=== PATIENT | female | born 1965 | race Caucasian/White ===

== ENCOUNTER 2017-11-02 15:30 | Outpatient (RCR) | payer BC, SELFPAY ==
--- NOTE | 2017-10-06 13:12 | PTTR_ITS ---
DATE: 10/06/17 SUBJECTIVE: Nancy states that her elbow is presenting with restricted motion again after attempting to pull weeds from her garden. She is seeing the chiropractor for this later today. Continues to complain of LBP, more so on the left side, into the upper glute. Denies sciatica symptoms. The patient read and signed dry needling information today, and gave consent for treatment. OBJECTIVE: Seen today for integrated dry needling (gibbs basis). She was educated in the definition of dry needling, its risks and benefits as well as typical response , expected outcomes and strategies for self care. Quantitative analysis: Right deep radial nerve 1/4, left deep radial nerve 1/4 , right saphenous 2/4, left saphenous 1/4 = 5/16 indicating a good responder to dry needling from 8 or fewer treatments. Homeostatic points used today: bilateral superior cluneal and inferior gluteal 3, posterior cutaneous of L5 2 bilaterally, paravertebrals L2 through L4 bilaterally 2 with the exception of right L2 1. Symptomatic points: 2 in left gluteal medius and 1 in right gluteal medius as well as bilateral piriformis triggers points, medial and lateral aspects. Manual therapy: ([id number]). Mulligan style SLR, PA mobs and manual distraction via leg pulls. She then performed a ther-ex routine with the [employer]TER [employer]IN. See her note for details. Direct treatment time: 15 min. Total treatment time: 30 min. Assessment: Responded well to dry needling today. Did comment that she had less gluteal discomfort upon getting off the plinth. Plan: Continue as indicated above. MM/gc
--- NOTE | 2017-10-06 16:13 | PTTR_ITS ---
DATE: 10/06/17 CO TREATMENT with supervising Eli, Fei Stinson. See his note for details. OBJECTIVE: Therapeutic procedures ([id number]). * x See flow sheet: focus was on core stabilization using an extension approach. Did have patient pay special attention to TA activities. * Verbal and tactile cues were provided throughout today's session for proper positioning and isolation of specific muscles. * Ended with estim and cryotherapy to the low back region while in prone x15 min. at no charge. Direct treatment time: 25 min. Total treatment time: 35 min. SG/gc
--- NOTE | 2017-10-11 10:40 | PTTR_ITS ---
DATE: 10/11/17 SUBJECTIVE: Nancy states she had a very good response to dry needling with nearly a day and a half of symptom free back function. Saw the Chiropractor yesterday for manipulation of the elbow and also manipulation of the low back, which did not offer any symptom reduction. She is noting mild improvements in her elbow, however. OBJECTIVE: Manual therapy: ([id number]). Lumbopelvic mobs consisting of PA mobs in prone, manual distraction techniques via leg pulls and Mulligan style SLR to individual LEs. Integrated dry needling. Homeostatic points used today: posterior cutaneus L5 with 2 bilaterally, bilateral superior cluneal and inferior gluteal with 3, para vertebrals of L3 and L4 bilaterally with 2 with estim applied bilaterally. Also, performed symptomatic points through bilateral glute medius, piriformis and glute lilli with muscle twitch in bilateral glute medius. This was done with 3 needles. She went on to complete a ther-ex routine with the UNDER TRIMMER. See her note for details. Therapeutic procedures ([id number][]). Direct treatment time: 15 min. Total treatment time: 30 min. Assessment: Responding very well to the dry needling. Plan: Continue with progression of core stabilization while implementing dry needling. MM/gc
--- NOTE | 2017-10-17 11:00 | PTTR_ITS ---
DATE: 10/17/17 Co-treat with supervising PT, Ronni Stinson. OBJECTIVE: Therapeutic procedures ([id number]). * x See flow sheet: Focus was on core and hip stabilization. Added standing hip PREs with gliding disc, modified planks and t-band resisted push / pull and circles CW/CCW. Performed 10 minutes of tread mill activity per wellness program. * x Provided skilled instruction in proper exercise performance * x Provided skilled manual cues to facilitate proper muscle recruitment and/ or movement pattern Declined modalities. Hope to add standing UBE next session if elbow is continuing to feel better. Direct treatment time: 35 minutes Total treatment time: 45 minutes
--- NOTE | 2017-10-17 13:14 | PTTR_ITS ---
DATE: 10/17/17 SUBJECTIVE: Nancy states she did well x3 days, without back pain, after her last session. Did note some muscle soreness in the glute where the trigger point needles were applied, but back pain was well managed. OBJECTIVE: Manual therapy: ([id number]). Integrated dry needling (gibbs basis). Homeostatic points used: superior cluneal and inferior gluteal bilaterally with 3, bilateral posterior cutaneous L5 with 2. Symptomatic points used: bilateral glute medius and piriformis with 3, paravertebrals L2 through L4 - utilized 1 on right L2, 2 on left L2 and 2 on L3/4 bilaterally. Ended with estim x8 minutes. She then rec'd manual therapy to include lumbopelvic mobs using manual distraction techniques via leg pulls as well as bent knee fall outs. PA mobs were applied followed by prone extension with over pressure at L3/4 and L5. The patient then completed a ther-ex routine with the [employer]. For details see her note. This was upgraded with more transverse abdominus and core stabilization strengthening. 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 Discussed a modified kneeling chair. She will look into this. She continues to be compliant with her press ups. Direct treatment time: 15 min. Total treatment time: 30 min. Plan: Continue as indicated above. MM/gc
--- NOTE | 2017-10-24 13:00 | NT_ITS ---
10/24/17 No showed for today's PT appt. Patient was attempted to be reached via telephone , but message had to be left. Crissy Simms, BENEFITS COORDINATOR
--- NOTE | 2017-10-25 11:25 | PTTR_ITS ---
DATE: 10/25/17 SUBJECTIVE: Nancy states her back pain exacerbated after riding x3 hrs. in a cramped car in the backseat. Admits having severe down regulation after her last needling session where she went back to sleep for a couple of hours. We discussed this being a possible side effect, and to make sure we schedule late in the day for subsequent treatment. She does feel the dry needling has been beneficial. Reports compliancy with her HEP. OBJECTIVE: Integrated dry needling was done on an out of pocket basis. Homeostatic pts. used today: bilateral superior cluneal and inferior gluteal 3 as well as posterior cutaneus L2 and L5 2, right L2 1 Symptomatic points used today: glute medius 3 left and piriformis x2 3 left, paravertebrals L3 and L4 as well. Did apply estim spanning L5 to L2 bilaterally x10 min. Manual therapy: ([id number]). PA mobs to the lumbar spine, lumbopelvic mobs using bent knee fall outs as well as manual distraction techniques to individual LEs. She did not have time for her in clinic strengthening routine today. Direct treatment time: 15 min. Total treatment time: 30 min. Plan: Resume 2x per week treatment. If she does not make significant gains in the next couple of weeks as she returns to work, which requires more sitting, will refer her back to her PCP for possible further intervention. Would like to push her more aggressively with her core stabilization. Will get her a workup with Jann Albarran ATC for this. MM/annel
--- NOTE | 2017-11-02 15:30 | PTTR_ITS ---
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 Has been holding up well with her back and disc related pain, but is still continuing to experience L sided sacral pain. Seen in PT for re-check. Patient has (+) SI compression testing when positioned supine, (-) gap testing, mildly (+) Stork, (-) Yadira. Was found to have anteriorly rotated L innominate that did correct well with MET. Therapeutic procedures ([id number]). * HEP review: Incorporate resisted hip extension with contralateral hip flexion with isometric for pelvic correction exercise. Patient received dry needling. This is MADISON basis. Homeostatic points used: Bilateral L5 2 needle L, superior cluneal and inferior gluteal with 3. Also performed paravertebrals L3-L5 with 2 bilaterally with stim for 10 mins Symptomatic points used glut med L, piriformis, medial and lateral trigger points with 3 with muscle twitch response elicited with medial piriformis trigger point. Direct treatment time: 20 mins Total treatment time: 45 mins A: Responded well to muscle energy correction technique for innominate rotation. Will follow up with her,continued frequency as above. Will progress with shot gun approach SI stabilization exercises next visit. MM/dl
== END 2017-11-04 23:59 | disposition home or self-care (01) ==
LOC: PT 15:30
PROVIDERS: PCP Emergency Medicine; Referring Provider Nurse Practitioner; Visit Provider Nurse Practitioner
DX: M54.5 Low back pain (principal); M51.27 Other intervertebral disc displacement, lumbosacral region
CPT/HCPCS: 97110; 97140

== ENCOUNTER 2017-12-28 12:07 | Outpatient (CLI) | payer BC, SELFPAY ==
--- NOTE | 2017-12-28 06:00 | DI.RAD_ITS ---
SYMPTOM/DIAGNOSIS: SACROILIAC JOINT DYSFUNCTION C-ARM: Fluoroscopy Time: 80.9 seconds Fluoroscopy was provided for guidance with pain clinic injection. Hard copy images show needle placement over the left inferior SI joint. Please see procedure note for details.
[2017-12-28 12:14] VITALS: BP 118/64; PULSE 69; RESP 16; TEMP 36.7; O2SAT 96
[2017-12-28 12:55] VITALS: BP 139/75; PULSE 76; RESP 13; O2SAT 99
--- NOTE | 2017-12-28 13:01 | PDOC.PAIN ---
Pain Clinic Procedure Note Current Active Problems Problem Status Onset Sacroiliac dysfunction Chronic INTRA-ARTICULAR SI JOINT INJECTION HAILE STOVALL has been referred to the [facility] for intra-articular SI joint injection. COMMENTS: Left SI joint pain Patient was interviewed and the medical record reviewed. There were no medical, pharmacologic, radiographic or other structural contraindications to attempting fluoroscopically guided intra-articular SI joint injection. Risks and expected side effects as well as potential benefit of the procedure were reviewed and voiced concerns addressed. The printed consent form was signed and witnessed. Standard time-out procedure was performed. Patient was placed in the prone position on the fluoroscopy table and automated blood pressure cuff and pulse oximeter applied. The skin entry point for approaching { /left/ } SI joints was identified under the most advantageous fluoroscopic view and marked. Following thorough Chlorhexadine preparation of the skin and draping and 1% lidocaine infiltration of the skin entry point and subcutaneous tissues, a 22 gauge spinal needle was placed under fluoroscopic guidance into { /left/ } SI joints was identified under the most advantageous fluoroscopic view and marked. Following thorough Chlorhexadine preparation of the skin and draping and 1% lidocaine infiltration of the skin entry point and subcutaneous tissues, a 22 gauge spinal needle was placed under fluoroscopic guidance into { /left/ } SI joint. Intra-articular placement was confirmed by a clear arthrogram resulting from the injection of 0.25ml Omnipaque 240, 1ml 0.5% bupivacaine, and half ml (40mg) of 80mg concentration Depomedrol were injected intra-articularily with an initial reproduction of a significant component of the usual pain. Vital signs were stable throughout the procedure and were as recorded in the docflowsheet by the nursing staff. If given, dosages of intravenous drugs for anxiolysis and analgesia were documented in MAR. Follow up plans and appointments were discussed with the patient. Post procedure instruction was given as documented in nursing documentation and having met discharge criteria, and was discharged from the [facility]. COMMENTS: pain went from 5/10 to 0/10. f/u prn CC: Jose Angel Gray
[2017-12-28] MEDS: Bupivacaine 0.5% Pres-Free 30 ML VIAL IJ (13:03)
[2017-12-28] MEDS: methylPREDNISolone ACETATE 80 MG/ML VIAL IJ (13:03)
[2017-12-28] MEDS: Omnipaque 240 MG/ML 50 ML BTL IJ (13:03)
--- NOTE | 2017-12-28 13:04 | PDOC.PAIN_ITS ---
Pain Clinic Procedure Note Current Active Problems Problem Status Onset Sacroiliac dysfunction Chronic INTRA-ARTICULAR SI JOINT INJECTION HAILE STOVALL has been referred to the [facility] for intra- articular SI joint injection. COMMENTS: Left SI joint pain Patient was interviewed and the medical record reviewed. There were no medical , pharmacologic, radiographic or other structural contraindications to attempting fluoroscopically guided intra-articular SI joint injection. Risks and expected side effects as well as potential benefit of the procedure were reviewed and voiced concerns addressed. The printed consent form was signed and witnessed. Standard time-out procedure was performed. Patient was placed in the prone position on the fluoroscopy table and automated blood pressure cuff and pulse oximeter applied. The skin entry point for approaching { /left/ } SI joints was identified under the most advantageous fluoroscopic view and marked. Following thorough Chlorhexadine preparation of the skin and draping and 1% lidocaine infiltration of the skin entry point and subcutaneous tissues, a 22 gauge spinal needle was placed under fluoroscopic guidance into { /left/ } SI joints was identified under the most advantageous fluoroscopic view and marked. Following thorough Chlorhexadine preparation of the skin and draping and 1% lidocaine infiltration of the skin entry point and subcutaneous tissues, a 22 gauge spinal needle was placed under fluoroscopic guidance into { /left/ } SI joint. Intra-articular placement was confirmed by a clear arthrogram resulting from the injection of 0.25ml Omnipaque 240, 1ml 0.5% bupivacaine, and half ml (40mg) of 80mg concentration Depomedrol were injected intra- articularily with an initial reproduction of a significant component of the usual pain. Vital signs were stable throughout the procedure and were as recorded in the docflowsheet by the nursing staff. If given, dosages of intravenous drugs for anxiolysis and analgesia were documented in MAR. Follow up plans and appointments were discussed with the patient. Post procedure instruction was given as documented in nursing documentation and having met discharge criteria, and was discharged from the [facility]. COMMENTS: pain went from 5/10 to 0/10. f/u prn CC: Jose Angel Gray
== END 2017-12-28 12:27 ==
PROVIDERS: PCP Emergency Medicine; Visit Provider Anesthesiology Pain Medicine
DX: M54.5 Low back pain (principal); M53.3 Sacrococcygeal disorders, not elsewhere classified; G89.29 Other chronic pain
CPT/HCPCS: 27096; 72200; J1040; Q9967

== ENCOUNTER 2018-02-02 12:59 | Outpatient (CLI) | payer BC, SELFPAY ==
--- NOTE | 2018-02-02 10:18 | DI.RAD_ITS ---
SYMPTOM/DIAGNOSIS: ACUTE LOW BACK PAIN, R/O FX OR BONE METS M54.5 LUMBOSACRAL SPINE: 02/02 Five views were obtained. There is minimal left convex lumbar scoliosis. This may be positional. There are mild degenerative changes of the S-I joints bilaterally. The intervertebral disc spaces are well maintained except for slight loss of height at L5-S1. Minimal hypertrophic spurring of the vertebral end plates and facet joints is noted throughout the lumbar region. CONCLUSION: Mild DJD of the lumbar spine. Presumed disc degeneration at L5-S1
== END 2018-02-02 13:19 ==
PROVIDERS: PCP Emergency Medicine; Visit Provider Nurse Practitioner Family
DX: M54.5 Low back pain (principal); M51.37 Other intervertebral disc degeneration, lumbosacral region; M53.3 Sacrococcygeal disorders, not elsewhere classified; M47.816 Spondylosis without myelopathy or radiculopathy, lumbar region
CPT/HCPCS: 72110

== ENCOUNTER 2018-02-14 08:39 | Outpatient (CLI) | payer BC, SELFPAY ==
--- NOTE | 2018-02-14 06:00 | DI.RAD_ITS ---
SYMPTOM/DIAGNOSIS: LUMBAR RADICULOPATHY C-ARM FLUOROSCOPY OF LUMBAR SPINE: Fluoroscopy Time: 18.1 seconds/7.10mGy Fluoroscopy was provided for guidance with lumbar spine Pain Clinic injection. Hard copy images show needle placement from posterior aspect at L5-S1 level. Please see procedure note for details.
[2018-02-14 08:49] VITALS: BP 102/80; PULSE 84; RESP 16; TEMP 36.3; O2SAT 98
[2018-02-14 09:29] VITALS: BP 141/86; PULSE 79; RESP 12; O2SAT 98
--- NOTE | 2018-02-14 09:29 | PDOC.PAIN ---
Pain Clinic Procedure Note Current Active Problems Problem Status Onset Lumbar radicular syndrome Acute Lumbar Epidural Steroid Injection Procedure Note COMMENTS: I reviewed her recent evaluation with Ms. Katz and her 09/05/17 lumbar spine MRI. Pre-injection pain level was 5/10. DX: Lumbosacral radiculopathy HAILE STOVALL has been referred to the [facility] for lumbar epidural steroid injection. The patient was greeted by the nurse who verified patients name and . Patient was then taken to the fluoroscopy suite. The patient was interviewed and the medial record reviewed. There were no medical, pharmacologic, radiographic, or other structural contraindications to attempting fluoroscopically guided lumbar epidural steroid injection. Risks and expected side effects as well as potential benefits of the procedure were reviewed and voiced concerns expressed. The patient consent form was signed and witnessed. Standard patient time-out procedure was performed. The patient was placed in the prone position on the fluoroscopy table and automated blood pressure cuff and pulse oximeter applied. The skin entry point for entering/approaching the epidural space at L5-S1 and marked. Following thorough chlorhexadine preparation of the skin and draping and 1% lidocaine infiltration of the skin entry point and subcutaneous tissues, a 18 gauge Touhy needle was placed under fluoroscopic guidance and with loss of resistance technique into the epidural space. Needle tip placement and depth were aided and confirmed by fluoroscopy. There was no paresthesia or return of blood or CSF through the needle. 1 cc's of Omnipaque 240 was injected with clear epidural spread confirmed with fluoroscopy. 80mg depomedrol was injected. There was not any unusual discomfort expressed by HAILE STOVALL. Patient's vital signs were stable throughout the procedure and were as recorded in nursing records. Follow up plans and appointments were discussed with patient. Post procedure instruction was given as documented in nursing records and having met discharge criteria and was discharged from the [facility]. COMMENTS: If this procedure is found to be helpful, it can be completed up to 3 times per 12 months. Post-injection pain level is 0/10.
[2018-02-14] MEDS: Omnipaque 240 MG/ML 50 ML BTL IJ (09:46)
[2018-02-14] MEDS: methylPREDNISolone ACETATE 40 MG/ML VIAL IJ (09:46)
== END 2018-02-14 08:59 ==
PROVIDERS: PCP Emergency Medicine; Visit Provider Preventive Medicine Occupational Medicine
DX: M54.16 Radiculopathy, lumbar region (principal)
CPT/HCPCS: 62323; 72100; J1030; Q9967

== ENCOUNTER 2018-08-29 13:29 | Outpatient (CLI) | payer BC, SELFPAY ==
[2018-08-29 13:40] VITALS: BP 100/69; PULSE 61; RESP 18; TEMP 35.9; O2SAT 97
[2018-08-29 14:24] VITALS: BP 124/69; PULSE 105; RESP 22; O2SAT 98
--- NOTE | 2018-08-29 14:24 | PDOC.PAIN ---
Pain Clinic Procedure Note Current Active Problems Problem Status Onset Lumbar radicular syndrome Acute Lumbar Epidural Steroid Injection Procedure Note COMMENTS: She has done very well with this procedure in the past. HAILE STOVALL has been referred to the [facility] for lumbar epidural steroid injection. The patient was greeted by the nurse who verified patients name and . Patient was then taken to the fluoroscopy suite. The patient was interviewed and the medial record reviewed. There were no medical, pharmacologic, radiographic, or other structural contraindications to attempting fluoroscopically guided lumbar epidural steroid injection. Risks and expected side effects as well as potential benefits of the procedure were reviewed and voiced concerns expressed. The patient consent form was signed and witnessed. Standard patient time-out procedure was performed. The patient was placed in the prone position on the fluoroscopy table and automated blood pressure cuff and pulse oximeter applied. The skin entry point for entering/approaching the epidural space at L5-S1 and marked. Following thorough chlorhexadine preparation of the skin and draping and 1% lidocaine infiltration of the skin entry point and subcutaneous tissues, a 18 gauge Touhy needle was placed under fluoroscopic guidance and with loss of resistance technique into the epidural space. Needle tip placement and depth were aided and confirmed by fluoroscopy. There was no paresthesia or return of blood or CSF through the needle. 1 cc's of Omnipaque 240 was injected with clear epidural spread confirmed with fluoroscopy. 80mg depomedrol was injected. There was not any unusual discomfort expressed by HAILE STOVALL. Patient's vital signs were stable throughout the procedure and were as recorded in nursing records. Follow up plans and appointments were discussed with patient. Post procedure instruction was given as documented in nursing records and having met discharge criteria and was discharged from the [facility]. COMMENTS: If this procedure is helpful, it can be completed up to 3 times per 12 months. Cristopher Puri DO, MPH [facility]BP[facility] - Subspecialty Board Certification in Pain Medicine
[2018-08-29] MEDS: methylPREDNISolone ACETATE 40 MG/ML VIAL IJ (14:25)
[2018-08-29] MEDS: Omnipaque 240 MG/ML 50 ML BTL IJ (14:25)
--- NOTE | 2018-08-29 14:25 | DI.RAD_ITS ---
SYMPTOMS/DIAGNOSIS: LUMBAR RADICULOPATHY C-ARM FLUOROSCOPY OF THE SPINE: Fluoroscopy Time: 13.9 seconds 4.34 dose Fluoroscopy was provided for guidance with pain clinic injection. Please see procedure note for details.
== END 2018-08-29 13:49 ==
PROVIDERS: PCP Emergency Medicine; Visit Provider Preventive Medicine Occupational Medicine
DX: M54.16 Radiculopathy, lumbar region (principal)
CPT/HCPCS: 62323; 72100; J1030; Q9967

== ENCOUNTER 2019-01-30 14:03 | Outpatient (CLI) | payer BC, SELFPAY ==
--- NOTE | 2019-01-30 06:00 | DI.RAD_ITS ---
EXAM: XR PAIN CLINIC LUMBAR SP 2V CLINICAL HISTORY: Lumbar Epidural Steroid Injection. TECHNIQUE: Fluoroscopy was provided for the referring physician for guidance with performing injecti on procedure. COMPARISON: No exams were available for comparison FINDINGS: Please see procedure note for details. Fluoro Time: 13.8 seconds
[2019-01-30 14:11] VITALS: BP 123/67; PULSE 78; RESP 16; TEMP 36.1; O2SAT 98
--- NOTE | 2019-01-30 14:12 | PDOC.PAIN ---
Pain Clinic Procedure Note Procedure Note Procedure Note: Lumbar Epidural Steroid Injection Procedure Note Pre-operative diagnosis: lumbar radiculopathy Post-operative diagnosis: same as above COMMENTS: previous lumbar epidural steroid injection provided good pain relief. HAILE STOVALL has been referred to the [facility] for lumbar epidural steroid injection. The patient was greeted by the nurse who verified patients name and . Patient was then taken to the fluoroscopy suite. The patient was interviewed and the medial record reviewed. There were no medical, pharmacologic, radiographic, or other structural contraindications to attempting fluoroscopically guided lumbar epidural steroid injection. Risks and expected side effects as well as potential benefits of the procedure were reviewed and voiced concerns expressed. The patient consent form was signed and witnessed. Standard patient time-out procedure was performed. The patient was placed in the prone position on the fluoroscopy table and automated blood pressure cuff and pulse oximeter applied. The skin entry point for entering/approaching the epidural space by a L5-S1 and marked. Following thorough chlorhexadine preparation of the skin and draping and 1% lidocaine infiltration of the skin entry point and subcutaneous tissues, a 18 gauge Touhy needle was placed under fluoroscopic guidance and with loss of resistance technique into the epidural space. Needle tip placement and depth were aided and confirmed by fluoroscopy. There was no paresthesia or return of blood or CSF through the needle. 1 cc's of Omnipaque 240 was injected with clear epidural spread confirmed with fluoroscopy. 80mg depomedrol was injected followed by 1cc of preservative free 1% lidocaine and 1cc of preservative free normal saline. There was not any unusual discomfort expressed by HAILE STOVALL. Patient's vital signs were stable throughout the procedure and were as recorded in nursing records. Follow up plans and appointments were discussed with patient. Post procedure instruction was given as documented in nursing records and having met discharge criteria and was discharged from the [facility]. COMMENTS: If this procedure is helpful, it can be completed up to 3 times per 12 months. Abi Carr MD Pain Management
[2019-01-30 14:45] VITALS: BP 115/64; PULSE 78; RESP 14; O2SAT 99
[2019-01-30] MEDS: Omnipaque 240 MG/ML 50 ML BTL IJ (14:45)
[2019-01-30] MEDS: methylPREDNISolone ACETATE 80 MG/ML VIAL IJ (15:15)
== END 2019-01-30 14:23 ==
PROVIDERS: PCP Emergency Medicine; Visit Provider Internal Medicine
DX: M54.16 Radiculopathy, lumbar region (principal)
CPT/HCPCS: 62323; 72100; J1040; Q9967

== ENCOUNTER 2019-08-28 07:50 | Outpatient (CLI) | payer BC, SELFPAY ==
[2019-08-28 08:00] VITALS: BP 92/65; PULSE 72; RESP 16; TEMP 36.6; O2SAT 98
[2019-08-28] MEDS: methylPREDNISolone ACETATE 80 MG/ML VIAL IJ (08:29)
[2019-08-28] MEDS: Omnipaque 240 MG/ML 50 ML BTL IJ (08:30)
--- NOTE | 2019-08-28 08:34 | DI.RAD_ITS ---
EXAM: XR PAIN CLINIC LUMBAR SP 2V CLINICAL HISTORY: Dx: Lumbar Radiculopathy TECHNIQUE: 2D and realtime digital imaging was performed. Fluoroscopy was provided in the OR COMPARISON: No exams were available for comparison FINDINGS: C-arm fluoroscopy was utilized by Dr. Carr during apparent lumbar epidural injection. Hard copy shows needle placement at L5-S1. Fluoro time, 15.6 seconds. RADIATION DOSE DELIVERED: Total DLP
--- NOTE | 2019-08-28 08:37 | PDOC.PAIN ---
Pain Clinic Procedure Note Procedure Note Procedure Note: Lumbar Epidural Steroid Injection Procedure Note Pre-operative diagnosis: lumbar radiculopathy Post-operative diagnosis: same as above COMMENTS: patient benefited from prior LESI done on 01/30/2019 which provided significant pain relief until 06/2019. HAILE STOVALL has been referred to the [facility] for lumbar epidural steroid injection. The patient was greeted by the nurse who verified patients name and . Patient was then taken to the fluoroscopy suite. The patient was interviewed and the medial record reviewed. There were no medical, pharmacologic, radiographic, or other structural contraindications to attempting fluoroscopically guided lumbar epidural steroid injection. Risks and expected side effects as well as potential benefits of the procedure were reviewed and voiced concerns expressed. The patient consent form was signed and witnessed. Standard patient time-out procedure was performed. The patient was placed in the prone position on the fluoroscopy table and automated blood pressure cuff and pulse oximeter applied. The skin entry point for entering/approaching the epidural space by a L5-S1 i markesd. Following thorough chlorhexadine preparation of the skin and draping and 1% lidocaine infiltration of the skin entry point and subcutaneous tissues, a 18 gauge Touhy needle was placed under fluoroscopic guidance and with loss of resistance technique into the epidural space. Needle tip placement and depth were aided and confirmed by fluoroscopy. There was no paresthesia or return of blood or CSF through the needle. 1 cc's of Omnipaque 240 was injected with clear epidural spread confirmed with fluoroscopy. 80mg depomedrol was injected. This is followed by 0.5cc of preservative free 1% lidocaine and 1cc of normal saline. There was not any unusual discomfort expressed by HAILE STOVALL. Patient's vital signs were stable throughout the procedure and were as recorded in nursing records. Follow up plans and appointments were discussed with patient. Post procedure instruction was given as documented in nursing records and having met discharge criteria and was discharged from the [facility]. COMMENTS: If this procedure is helpful, it can be completed up to 3 times per 12 months. I personally performed the entire procedure. Abi Carr MD Pain Management
[2019-08-28 08:38] VITALS: BP 114/74; PULSE 69; RESP 14; O2SAT 98
== END 2019-08-28 08:10 ==
PROVIDERS: PCP Emergency Medicine; Visit Provider Internal Medicine
DX: M54.16 Radiculopathy, lumbar region (principal)
CPT/HCPCS: 62323; 72100; J1040; Q9967

== ENCOUNTER 2020-01-15 13:38 | Outpatient (CLI) | payer BC, SELFPAY ==
[2020-01-15 13:41] VITALS: BP 99/69; PULSE 80; RESP 16; TEMP 36.5; O2SAT 96
[2020-01-15] MEDS: Omnipaque 240 MG/ML 50 ML BTL IJ (14:19)
[2020-01-15] MEDS: methylPREDNISolone ACETATE 80 MG/ML VIAL IJ (14:27)
[2020-01-15 14:30] VITALS: BP 121/66; PULSE 69; RESP 12; O2SAT 98
--- NOTE | 2020-01-15 14:30 | DI.RAD_ITS ---
EXAM: XR PAIN CLINIC LUMBAR SP 2V CLINICAL HISTORY: Dx:Lumbar Radiculopathy TECHNIQUE: 2D and realtime digital imaging was performed. CONTRAST MATERIAL: Refer to procedure report. COMPARISON: No exams were available for comparison FINDINGS: Fluoroscopy was provided for Dr. Carr during the performance of a lumbar epidural steroid injection. Please refer to the procedure report for complete details. Fluoro time: 38.6 seconds IMPRESSION:
--- NOTE | 2020-01-15 14:47 | PDOC.PAIN ---
Pain Clinic Procedure Note Procedure Note Procedure Note: Lumbar Epidural Steroid Injection Procedure Note Pre-operative diagnosis: lumbar radiculopathy Post-operative diagnosis: same as above COMMENTS: good pain relief until about 3 weeks ago. back pain with radiation down left buttock. HAILE STOVALL has been referred to the [facility] for lumbar epidural steroid injection. The patient was greeted by the nurse who verified patients name and . Patient was then taken to the fluoroscopy suite. The patient was interviewed and the medial record reviewed. There were no medical, pharmacologic, radiographic, or other structural contraindications to attempting fluoroscopically guided lumbar epidural steroid injection. Risks and expected side effects as well as potential benefits of the procedure were reviewed and voiced concerns expressed. The patient consent form was signed and witnessed. Standard patient time-out procedure was performed. The patient was placed in the prone position on the fluoroscopy table and automated blood pressure cuff and pulse oximeter applied. The skin entry point for entering/approaching the epidural space by a L5-S1 i markesd. Following thorough chlorhexadine preparation of the skin and draping and 1% lidocaine infiltration of the skin entry point and subcutaneous tissues, a 18 gauge Touhy needle was placed under fluoroscopic guidance and with loss of resistance technique into the epidural space. Needle tip placement and depth were aided and confirmed by fluoroscopy. There was no paresthesia or return of blood or CSF through the needle. 1 cc's of Omnipaque 240 was injected with clear epidural spread confirmed with fluoroscopy. 80mg depomedrol was injected. This is followed by 0.5cc of preservative free 1% lidocaine and 1cc of normal saline. There was not any unusual discomfort expressed by HAILE STOVALL. Patient's vital signs were stable throughout the procedure and were as recorded in nursing records. Follow up plans and appointments were discussed with patient. Post procedure instruction was given as documented in nursing records and having met discharge criteria and was discharged from the [facility]. COMMENTS: If this procedure is helpful, it can be completed up to 3 times per 12 months. I personally performed the entire procedure. of note, patient reported injection of contrast and steroid medication reproduced pressure like sensation down left buttock. Abi Carr MD Pain Management
== END 2020-01-15 13:58 ==
PROVIDERS: PCP Emergency Medicine; Visit Provider Internal Medicine
DX: M54.16 Radiculopathy, lumbar region (principal)
CPT/HCPCS: 62323; 72100; J1040; Q9967

== ENCOUNTER 2020-06-20 16:36 | Outpatient (REF) | payer BC, SELFPAY ==
[2020-06-20 20:41] LABS: Abs Immature Grans 0.02 10^3/uL (0.0-0.06); Absolute Basophil Count 0.06 10^3/uL (0.0-0.2); Absolute Eosinophil Count 0.15 10^3/uL (0.0-0.7); Absolute Lymphocyte Count 2.73 10^3/uL (1.2-3.4); Absolute Monocyte Count 0.48 10^3/uL (0.1-0.8); Absolute Neutrophil Count 2.87 10^3/uL (1.2-6.7); Eosinophils % 2.4; HCT 42.4 % (36.0-46.0); HGB 13.8 g/dL (11.2-15.7); Immature Grans % 0.3; Lymphocytes % 43.3; MCH 29.6 pg (27.0-33.0); MCHC 32.5 % (32.0-36.0); MCV 90.8 fL (80-95); MPV 9.4 fL (8.0-11.0); Monocytes % 7.6; Neutrophils % 45.4; Nucleated RBC 0 %; Platelet Count 326 10^3/uL (130-400); RBC 4.67 10^6/uL (3.93-5.22); RDW 12.8 % (11.7-14.6); RDW-SD 42.2 fL; WBC 6.31 10^3/uL (4.4-10.8)
[2020-06-20 21:15] LABS: ALT 27 U/L (14-59); AST 23 U/L (15-37); Albumin 4.1 g/dL (3.4-5.0); Alkaline Phosphatase 77 U/L (46-116); Anion Gap 9.8 mmol/L (3-11); BUN 13 mg/dL (7-18); Bilirubin, Total 0.3 mg/dL (0.2-1.0); C-Reactive Protein 0.15 mg/dL (0.0-0.3); CO2 25.2 mmol/L (21.0-32.0); CREATININE 0.7 mg/dL (0.55-1.02); Chloride 106 mmol/L (98-107); Glucose 85 mg/dL (74-106); Potassium 4.3 mmol/L (3.5-5.1); Sodium 141 mmol/L (136-145); TSH 6.31 uIU/mL (0.36-3.74); Total Protein 7.3 g/dL (6.4-8.2)
== END 2020-06-20 16:37 | disposition home or self-care (01) ==
LOC: LBN 16:36
PROVIDERS: PCP Emergency Medicine; Visit Provider Emergency Medicine
DX: E03.9 Hypothyroidism, unspecified (principal); R53.83 Other fatigue; Z86.16 Personal history of COVID-19
CPT/HCPCS: 80053; 84443; 85025; 86140

== ENCOUNTER 2020-10-07 03:44 | Outpatient (CLI) | payer BC, SELFPAY ==
[2020-10-07 12:33] LABS: C-Reactive Protein 0.26 mg/dL (0.0-0.3); TSH 1.67 uIU/mL (0.36-3.74)
== END 2020-10-07 03:45 | disposition home or self-care (01) ==
LOC: LOS 03:45
PROVIDERS: PCP Emergency Medicine; Visit Provider Emergency Medicine
DX: E03.9 Hypothyroidism, unspecified (principal); U07.1 COVID-19
CPT/HCPCS: 36415; 84443; 86140

== ENCOUNTER 2021-06-03 02:57 | Outpatient (CLI) | payer BC, SELFPAY ==
[2021-06-03 08:35] LABS: Anion Gap 5.5 mmol/L (3-11); BUN 16 mg/dL (7-18); CO2 28.5 mmol/L (21.0-32.0); CREATININE 0.7 mg/dL (0.55-1.02); Chloride 104 mmol/L (98-107); Glucose 98 mg/dL (74-106); Potassium 4.8 mmol/L (3.5-5.1); Sodium 138 mmol/L (136-145); TSH 1.93 uIU/mL (0.36-3.74)
== END 2021-06-03 02:58 | disposition home or self-care (01) ==
LOC: LBO 02:58
PROVIDERS: PCP Family Medicine; Visit Provider Emergency Medicine
DX: I10 Essential (primary) hypertension (principal); E03.9 Hypothyroidism, unspecified
CPT/HCPCS: 36415; 80048; 84443

== ENCOUNTER 2021-10-23 01:02 | Outpatient (CLI) | payer BC, SELFPAY ==
--- OUTSIDE RECORDS SUMMARY | 2021-10-23 01:08 | XMS_ITS | Encounter Summary ---
:1965 Author Organization [facility] Address [address] [place] [address] Care Team Providers Name Role Phone Unavailable Primary Care Provider Unavailable Encounter Details Date Type Department Care Team Description 08/25/1999 Results Only [facility] - Mary Ornelas od, Pat Clifton, PHOTORESIST CONTACT PRINTER conversion [address] [place] [phone] (Wo rk) Social History Tobacco Use Types Packs/Day Years Used Date Never Assessed Sex Assigned at Date Recorded Not on file documented as of this encounter Plan of Treatment Not on filedocumented as of this encounter Procedures Procedure Name Priority Date/Time Associated Diagnosis Comme [facility] CYTOPATHOLOGY Routine 08/25/1999 0:00 EDT Results for this procedure are i n the results section . documented in this encounter Results CYTOPATHOLOGY (08/25/1999 0:00 EDT) Pathology Report: CYTOPATHOLOGY REPORT [facility] Reports generated via electronic interface contain jasmine ginal data; however they are lacking the format of the original re port. Caution should be taken when reading/interpreting unfo rmatted reports. Name: ? HAILE STOVALL ? Accession #: ? [id number] : ? 1965 (Age: 34) ??F ?Collect Date: ? 08/06 Location: ? [facility] ? Receive Date : ? 08/27/1999 Provider: ?PAT DODSON PHOTORESIST CONTACT PRINTER Copy to: ? Specimen/Source: ?ThinPrep Pap Test, Cervix/ Endocervix Last Menstrual Period: ? 08/20/99 ? SPECIMEN ADEQUACY ? Satisfactory for evaluation. GENERAL CATEGORIZATION ? Within Normal Limits ? Document reviewed and electronically signed by: ? ROSE Smith(ASCP) ? Report Date: ??08/28/1999 11:18 End of Report Specimen Performing Organization Address City/State/ZIP Code Phon e Number [facility] [address] [place] [address] [facility] [address] [place] [address] documented in this encounter Visit Diagnoses Not on filedocumented in this encounter
--- OUTSIDE RECORDS SUMMARY | 2021-10-23 01:08 | XMS_ITS | Encounter Summary ---
:1965 [place] [address] Care Team Providers Name Role Phone Jose Angel Gray DO Primary Care Provider Encounter Details Date Type Department Care Team Description 01/24/2013 Anesthesia Event Main Operating Room Bill Myles MD [facility] [place] [address] [facility] Jann Newell [facility] [address] [place] [address] [place] [phone] Anesthesia Record Procedure Summary Procedure Name Responsible Anesthesia Start Anesthesia Stop Time Anesthesiologist Time REDUCTION Bill Díaz MD 01/24/13 0732 01/24/13 10 31 MAMMOPLASTY, SHREYA (WRVU 16.03) (Bilateral Breast) Events Date Time Event Comment 01/24/2013 0731 0732 Start 0738 AN Verify 0738 An Start Data 0740 An Induction 0744 An Intubation 0751 Anesthesia Ready 1018 Extubation/LMA Out 1022 an stop data 1031 Stop Name Total Midazolam 2 mg fentaNYL 200 mcg IV Lidocaine 60 mg Propofol 200 mg Rocuronium 50 mg Ondansetron 4 mg Dexamethasone 8 mg Neostigmine 2 mg Glycopyrrolate 0.4 mg ceFAZolin (ANCEF) 1g in dextrose 5% 50mL 1 g Lactated Ringers 1,100 mL Lactated Ringers 0 mL Agents Name O2 Air N2O Sevoflurane (et) Blood No blood administrations on file. Lines, Drains, and Airways Type Details Placement Removal Incision 01/24/13; 0805; breast 01/24/13 0805 by Kimberlyn Joyce RN Lumbar/CSF Drain 01/24/13; 0957; Right; 01/24/13 0957 by breast; collapsible Kimberlyn Joyce RN closed device (19 Fr. adrian drain.) Lumbar/CSF Drain 01/24/13; 0958; Left; 01/24/13 0958 by breast; collapsible Kimberlyn Joyce RN closed device (19 Fr. adrian drain.) PIV 01/24/13; 0626; 01/24/13 0626 by 01/24/13 1329 b y 01/24/13; 1329 Bibiana Orozco RN Maguire, R osanne, RN (RETIRED) Mask Ventilation: Easy 01/24/13 0744 by 01/24/13 1018 by Non-Surgical Airway (1); ETT Type: Cuffed, Jann Newell, ILLUSTRATOR SET Jann Newell, Oral; ETT Size: 7 mm ILLUSTRATOR SET PIV 06/20/17 (Auto removal 01/24/13 0802 by 06/20/17 0921 by via utility); 0921 (Auto Epic, U ser removal via utility) documented in this encounter Social History Tobacco Use Types Packs/Day Years Used Date Never Smoker Smokeless Tobacco: Never Used Alcohol Use Standard Drinks/Week Comments Yes 5.8 (1 standard drink = 0.6 oz pure alco hol) Sex Assigned at Date Recorded Not on file documented as of this encounter OR Notes Anesthesia Postprocedure Evaluation - Bill Díaz MD - 01/25/2013 5:24 PM EST Patient: Nancy Pimentel Procedure(s) Performed: Procedure(s): REDUCTION MAMMOPLASTY, SHREYA MODIFIER LUCIANO SEE PROTOCOL Actual Anesthetic: general Patient location: PACU Post-op pain: Adequate analgesia Post-op nausea: no nausea or vomiting Last Vitals: Filed Vitals: 01/24/13 1100 BP: 104/52 Pulse: 57 Temp: Resp: 16 Post-op cardiovascular and respiratory status: is stable Level of consciousness: awake, alert and oriented Complications: no apparent complications and tolerated the procedure well Fluid Status: normal Anesthesia Preprocedure Evaluation - Bill Díaz MD - 01/24/2013 6:49 AM EST Pre-Anesthesia Evaluation for: Nancy Pimentel a 47 y.o. female. Procedure(s): REDUCTION MAMMOPLASTY, SHERYA MODIFIER LUCIANO SEE PROTOCOL Patient Active Problem List Diagnosis ??? Macromastia ??? CIS - Entered not Verified ??? CIS - syncope No past medical history on file. Past Surgical History Procedure Date ??? section ??? Foot surgery History Substance Use Topics ??? Smoking status: Never Smoker ??? Smokeless tobacco: Never Used ??? Alcohol Use: 3.5 oz/week 7 drink(s) per week History Drug Use No Allergies Allergen Reactions ??? Adhesive Tape Pt thinks paper tape is OK ??? Sulfa (Sulfonamide Antibiotics) Medications: MAR and/or home medications have been reviewed. Physical Exam: There were no vitals filed for this visit. There is no height or weight on file to calculate BMI. Airway Assessment: Mallampati: I TM distance: >3 FB Neck ROM: full Cardiovascular Assessment: Pulmonary Assessment: pulmonary exam normal Dental Assessment: [facility] Assessment: Anesthesia Plan: ASA 1 general, with a(n) intravenous induction Very pleasant and healthy/active 74kg 47yo female for reduction mammoplasty. Generally healthy non-smoker Runs 3-4 miles on [place] several x weekly Recently healthy - No URI/IAV/RAD/GERD/JESSENIA/FHAC etc Appropriately fasted No ETS exposure Region - Other Informed Consent: Anesthetic plan and risks discussed with patient and spouse. Plan discussed with ILLUSTRATOR SET. [facility]. Assessment: documented in this encounter Plan of Treatment Not on filedocumented as of this encounter Visit Diagnoses Not on filedocumented in this encounter Administered Medications Inactive Administered Medications - up to 3 most recent administrations Medication Order MAR Action Action Date Dose Rate Site ceFAZolin (ANCEF) 1g in dextrose 5% Given 01/24/2013 7:51 AM EST 1 g 50mL 1,000 mg (1 g), Intravenous, ONCE, 1 dose, On Tue01/24/13 at 0630, Administer over 30 Minutes, Day of Surgery (Day of Procedure), Indication for (Active or Suspected): Prophylaxis dexamethasone (DECADRON) injection Given 01/24/2013 8:06 AM EST 8 mg PRN, Starting on Tue01/24/13 at 0806, Until Tue01/24/13 at 1035, Anesthesia Intra-op, Routine fentaNYL 50mcg/mL injection Given 01/24/2013 10:27 AM EST 25 mcg PRN, Starting on Tue01/24/13 at 0740, Until Tue01/24/13 at 1035, Pain, Anesthesia Intra-op, Routine Given 01/24/2013 10:22 AM EST 25 mcg Given 01/24/2013 10:08 AM EST 25 mcg glycopyrrolate (ROBINUL) injection Given 01/24/2013 10:11 AM EST 0.2 mg PRN, Starting on Tue01/24/13 at 1004, Until Tue01/24/13 at 1035, Anesthesia Intra-op, Routine Given 01/24/2013 10:04 AM EST 0.2 mg lactated ringers infusion New Bag 01/24/2013 9:18 AM EST mL CONTINUOUS PRN, Starting on Tue01/24/13 at 0732, Until Tue01/24/13 at 1032, Anesthesia Intra-op New Bag 01/24/2013 7:32 AM EST mL lactated ringers infusion New Bag 01/24/2013 7:54 AM EST mL CONTINUOUS PRN, Starting on Tue01/24/13 at 0754, Until Tue01/24/13 at 1035, Anesthesia Intra-op lidocaine (PF) (XYLOCAINE) 100 mg/5 mL (2 %) Given 3 7:40 AM EST 60 mg injection PRN, Starting on Tue01/24/13 at 0740, Until Tue01/24/13 at 1035, Anesthesia Intra-op, Routine midazolam (VERSED) injection Given 01/24/2013 7:32 AM EST 2 mg PRN, Starting on Tue01/24/13 at 0732, Until Tue01/24/13 at 1035, Sleep, Anesthesia Intra-op, Routine neostigmine (PROSTIGMINE) injection Given 01/24/2013 10:04 AM EST 2 mg PRN, Starting on Tue01/24/13 at 1004, Until Tue01/24/13 at 1035, Anesthesia Intra-op, Routine ondansetron (ZOFRAN) injection Given 01/24/2013 10:01 AM EST 4 mg PRN, Starting on Tue01/24/13 at 1001, Until Tue01/24/13 at 1035, Nausea, Anesthesia Intra-op, Routine propofol (DIPRIVAN) 10 mg/mL bolus injection Given 7:40 AM EST 200 mg (Anesthesia) PRN, Starting on Tue01/24/13 at 0740, Until Tue01/24/13 at 1035, Anesthesia Intra-op rocuronium (ZEMURON) injection Given 01/24/2013 7:41 AM EST 50 mg PRN, Starting on Tue01/24/13 at 0741, Until Tue01/24/13 at 1035, Anesthesia Intra-op, Routine documented in this encounter Care Teams Monitor Tech Relationship Specialty Start Date End Date Jose Angel Gray DO PCP - General 01/27/[address] [place] [address] documented as of this encounter
--- OUTSIDE RECORDS SUMMARY | 2021-10-23 01:08 | XMS_ITS | Encounter Summary ---
:1965 Author Organization [facility] Address [address] [place] [address] Care Team Providers Name Role Phone Unavailable Primary Care Provider Unavailable Encounter Details Date Type Department Care Team Description 06/06/2002 Results Only [facility] - Mary Ornelas od, Pat Clifton, INSTRUCTIONAL FACILITATOR conversion [address] [place] [phone] (Wo rk) Social History Tobacco Use Types Packs/Day Years Used Date Never Assessed Sex Assigned at Date Recorded Not on file documented as of this encounter Plan of Treatment Not on filedocumented as of this encounter Procedures Procedure Name Priority Date/Time Associated Diagnosis Comme [facility] CYTOPATHOLOGY Routine 06/06/2002 0:00 EST Results for this procedure are i n the results section . documented in this encounter Results CYTOPATHOLOGY (06/06/2002 0:00 EST) Pathology Report: CYTOPATHOLOGY REPORT [facility] Reports generated via electronic interface contain jasmine ginal data; however they are lacking the format of the original re port. Caution should be taken when reading/interpreting unfo rmatted reports. Name: ? HAILE STOVALL ? Accession #: ? [id number] : ? 1965 (Age: 36) ??F ?Collect Date: ? 0 04/2002 Location: ? [facility] ? Receive Date : ? 06/08/2002 Provider: ?PAT DODSON INSTRUCTIONAL FACILITATOR Copy to: ? Specimen/Source: ?ThinPrep Pap Test, Cervix/ Endocervix Last Menstrual Period: ? 05/05/02 Previous Gynecologic Pathology: ? Benign cellular changes: 1996 ? SPECIMEN ADEQUACY ? Satisfactory for Evaluation - transformation zone component present GENERAL CATEGORIZATION ? Negative for Intraepithelial Lesion or Malignan cy ? Document reviewed and electronically signed by: ? FABRIZIO Lora(ASCP) ? Report Date: ??06/13/2002 07:58 End of Report Specimen Performing Organization Address City/State/ZIP Code Phon e Number [facility] [address] [place] [address] SERVICES [facility] [address] [place] [address] documented in this encounter Visit Diagnoses Not on filedocumented in this encounter
--- OUTSIDE RECORDS SUMMARY | 2021-10-23 01:08 | XMS_ITS | Encounter Summary ---
:1965 Author Organization [facility] Address [facility] [place] [address] Care Team Providers Name Role Phone Jose Angel Gray Primary Care Provider Reason for Visit Reason Comments Advice Only bbr consult Encounter Details Date Type Department Care Team Description 11/15/2012 Office Visit Plastic Surgery at [facility] MD Amol Gonzalez (Primary [facility] Dx) [facility] DR Martinez PLASTIC SURGERY [place] [phone] Social History Tobacco Use Types Packs/Day Years Used Date Never Smoker Smokeless Tobacco: Never Used Alcohol Use Standard Drinks/Week Comments Yes 5.8 (1 standard drink = 0.6 oz pure alco hol) Sex Assigned at Date Recorded Not on file documented as of this encounter Last Filed Vital Signs Vital Sign Reading Time Taken Comments Blood Pressure 126/68 11/15/2012 3:21 PM EDT Pulse 60 11/15/2012 3:21 PM EDT Temperature - - Respiratory Rate - - Oxygen Saturation - - Inhaled Oxygen Concentration - - Weight 75.2 kg (165 lb 12.8 oz) 11/15/2012 3:21 PM EDT Height 168.9 cm (5' 6.5) 11/15/2012 3:21 PM EDT Body Mass Index 26.36 11/15/2012 3:21 PM EDT documented in this encounter Patient Instructions Patient InstructionsSandrine Buckley RN - 11/15/2012 4:11 PM EDT Welcome to [facility], your secure online access to your electronic medical record at [facility]. Using [facility] you will be able to send messages to your providers, view your test results, renew prescriptions, schedule appointments, and much more. Follow these instructions to enter your personal [facility] account for the first time: 1. Start your internet browser and type [email or web address] into the address bar. 2. In the New User box on the right-hand side of the Welcome page click the link that states, ???I have an activation code.?? 3. On the Identification page, follow these steps: a) Enter your [facility] activation code: [email or web address] b) Expires: 12/30/2012 4:11 PM IMPORTANT: This Activation Code will on the above mentioned date. If you do not sign up for [facility] by this date, you will need to request another activation code. c) Enter your date of , using the calendar tool provided. d) Enter your Zip code. e) Select ???submit?? to go to the next page. 4. On the Create Account page, follow these steps: a) Create a [facility] username. This can???t be changed, so choose one you won???t forget. b) Create a password that???s at least six characters long, and that contains at least two numbers. Your password can be changed at any time. Confirm your password by entering it once more. c) Enter your email address. This will be used to alert you to new information. Confirm your email address by entering it once more. d) Enter your security question. This will be used if you forget your password. e) Enter your security answer. Confirm your security answer by entering it once more. f) Select ???submit?? to view your electronic medical record. If you have any questions about [facility] or your Access Code, please call for [place], for [place] or for [place]. If you need technical support, please e-mail . Remember, [facility] is NOT for urgent needs! Always dial 911 for medical emergencies. You were given written and verbal preoperative instructions today. To prepare for your upcoming surgery, please review the Pre-Operative Instruction brochure that you were given at today's appointment. Feel free to call our office [phone] if you have any questionsor concerns. We monitor the phones from 8-5 Tuesday through Tuesday. documented in this encounter Progress Notes Sandrine Buckley RN - 11/15/2012 4:23 PM EDT Pre-Op Teaching for Surgery Surgery: BBR Written and verbal pre-operative instructions were given and reviewed with patient: Patient was advised to discontinue use of NSAIDS and aspirin products (unless otherwise advised by patient's PCP/Combination Operator for cardiac symptoms), fish oil, Vitamin E and herbal supplements for 14 days prior to surgery, to perform the pre-op scrub, and to coordinate a ride home following surgery. Smoking status and medications were further reviewed to rule out/address current use of Nicotine, Coumadin, Plavix, Estrogen or Tamoxifen. Photos were taken Patient was instructed to call the clinic at with any questions or concerns prior to surgery. Modesto Taveras MD - 11/15/2012 3:15 PM EDT Plastic Surgery Consultation Note Modesto Taveras MD. PCP: JOSE ANGEL GRAY DO Requesting Physician: As above Reason for office visit: Symptomatic macromastia HPI: Nancy Pimentel is a 47 y.o. female who presents today for evaluation of symptomatic macromastia.Her PCP is JOSE ANGEL GRAY DO and has requested the consultation. She is not accompanied for today???s visit. She reports she has neck and back pain. She reports the weight of her breasts interfere with her ability to run and ski. She has to wear two jog bra's during exercise activities. She denies nipple discharge or masses in her breasts. She reports she rarely has rashes under her breasts. She has completed a breast specific questionnaire: Pertinent findings to emphasize are: [facility] Pl[facility] Breast Q 11/15/2012 Headaches? Some of the time Pain in your breast area? A little of the time Lack of energy? Some of the time Difficulty doing vigorous physical activities (e.g. running or exercising)? Most of the time Feeling physically unbalanced? Most of the time Shoulder pain? Most of the time Difficulty sleeping because of discomfort in your breast area? None of the time Neck pain? Most of the time Painful gouges or grooves in your shoulders from your bra straps? All of the time Feeling physically uncomfortable? Most of the time Rashes under your breasts? None of the time Back pain? Most of the time Arm pain? None of the time Pain, numbness or tingling in your hands because of your breast size? A little of the time Conservative Therapy Treatments: [facility] PLASTICS CONSERVATIVE THERAPY TREATMENTS 11/15/2012 Physical therapy was effective at relieving my symptoms. Some Relief How many months did you try this treatment? 3 to 6 months Use of custom support bras relieved my symptoms. No Relief How many months did you try this treatment? More than 6 months Treatment by a chiropractor relieved my symptoms. Some Relief How many months did you try this treatment? More than 6 months Weight loss relieved my symptoms. No Relief How many months did you try this treatment? More than 6 months Non-narcotic medications (such as Tylenol, Aspirin, Ibuprofen, Aleve, etc) have relieved my symptoms. Some Relief How many months did you try this treatment? More than 6 months Narcotic pain relievers (such as Tylenol #3, Percocet, etc) have relieved my symptoms. Never Tried Other Treatments have relieved my symptoms. Never Tried Over the counter or prescription medication has relieved the rashes under my breasts. Never Tried No past medical history on file. Past Surgical History Procedure Date ??? section ??? Foot surgery No family history on file. No current outpatient prescriptions on file prior to visit. Allergies Allergen Reactions ??? Sulfa (Sulfonamide Antibiotics) ROS: HEENT, GI, /Renal, Psych, Card, Pulm, Endo, Heme, Immun, Neuro: negative Examination: BMI: BP 126/68 Pulse 60 Ht 168.9 cm (5' 6.5) Wt 75.206 kg (165 lb 12.8 oz) BMI 26.36 kg/m2 BSA: Body surface area is 1.88 meters squared. Bra size: 36DD Goal cup size: B-C Her most recent mammogram was normal. General: On my examination today, the patient appears to be in good health. Her emotional outlook ispositive and she asked appropriate questions throughout the visit. Breast Measurements Right Left Ptosis III III SN-N (cm) 29.5 30 IMF-N (cm) 14.5 15 Base diameter (cm) 16 16 NAC elevat (cm) 5 6 Masses - - Shoulder grooves + + Rash - - Axillary rolls + + Surgical Scars - - Breast Vol (estimate in cc) 1000 1100 Resection (estimate in gms) 550 600 Musculoskeletal: Her back is straight without evidence of kyphosis. Gross full ROM x 4 extrem, ambulating, no lesions Resp: No stridor, no wheezes, regular rate. Extrem: wwp, no cyanosis/clubbing/or edema. Impression: Symptomatic bilateral breast hypertrophy. Bilateral breast reduction is indicated for relief of her breast-related symptoms. She has some breast asymmetry and we discussed that this may persist post-op. We reviewed activity restrictions and the recommended time off from work of 1-2 weeks and 6 weeks of restricted activity. She was provided with an ASPS brochure and informed consent on breast reduction. It reviews the surgical risks, alternate skin incisions and pedicle versus free nipplegraft techniques. It also discusses the option of volume reduction by liposuction alone, which does not alter the nipple-areolar complex position. It talks about the impact of this surgery on decreasing breast cancer risk. We reviewed the timing of surgery relative to weight fluctuations and I've advised that surgery is best done at a realistic [place] [facility] stable weight. We talked about the outpatient nature of the surgery,drains, postoperative recovery, and time required off work. She has been referred to [email or web address] online and provided with my e-mail address. The following risks were reviewed in the video or in our discussion: Surgical Risks which are greater with open reduction: bleeding with risk of hematoma (<5%); numbness, which may be temporary or permanent; scarring, including abnormal scarring; infection (5-10%); fat necrosis resulting in a breast mass and possible need for revision. I stressed the likelihood of minor problems with delayed wound healing (~30%) and the rare complication of nippleareolar necrosis. She is also aware that there may be some residual pain after the surgery and that there may possibly be some asymmetry. Vertical or Lollipop Incision: Less scarring on breast, but slightly greater risk for delayed healing and desire for scar revision. (She was informed that her insurer might not cover secondary revisions for scarring or asymmetry.) Caceres or [place] Pattern Incision: More scarring on breast, but lower risk for scar revision. (She wasinformed that her insurer might not cover secondary revisions for scarring or asymmetry.) Pedicle Technique: volume of reduction may be limited by need to provide an adequate blood supply tothe nipple. There is a very small risk of nipple loss. Most women (~60%) will be able to breast-feed. Free Nipple Graft: The grafts will initially have no sensation and once fully healed may not respondto temperature and touch as they do now. She has also been informed that they may not look entirely normal and may have patchy hypopigmentation. She will not be able to breast feed with this technique. After fully discussing the options, she has opted to pursue a: Bilateral Breast Reduction Vertical, Pedicle x Bilateral Breast Reduction Caceres, Pedicle Bilateral Breast Reduction Caceres, FNG Anticipated resection: 1000 grams right breast 1100 grams left breast BSA [place] All other / Schnur BSA [place] [facility] 1.88 755 She would like to proceed with surgery and I will inform her PCP of this plan. Surgery Booking Information: Surgeon: Ana Duration: 2.5 hours Timeframe: Elective Procedure: Bilateral breast reduction CPT: 38617 Surgical Technique: Caceres, Pedicle. Surgical site: Breasts Side: Bilateral Anesthesia: General Follow up: 1-3 days for drain removal; 7-10 days for HCK PAT: Medical clearance from PCP. Copy of mammogram from within last year. Abx: Ancef 1 g IV I, Jeanette Umana, am acting as scribe for Dr Taveras. All work documented was performed by Dr Taveras. ???I performed the above scribed service and agree with the accuracy of the note?? MODESTO TAVERAS MD. documented in this encounter Miscellaneous Notes Miscellaneous - Provider, Scanning - 11/30/2012 8:19 PM EDT documented in this encounter Plan of Treatment Not on filedocumented as of this encounter Procedures Procedure Name Priority Date/Time Associated Diagnosis Comme nts REDUCTION MAMMOPLASTY, Routine 11/15/2012 4:20 PM EDT BILATERAL documented in this encounter Visit Diagnoses Diagnosis Macromastia - Primary Hypertrophy of breast documented in this encounter Care Teams Business Intelligence Manager Relationship Specialty Start Date End Date Jose Angel Gray DO PCP - General 01/27/[address] [place] [address] documented as of this encounter
--- OUTSIDE RECORDS SUMMARY | 2021-10-23 01:08 | XMS_ITS | Encounter Summary ---
:1965 Author Organization [facility] [place] [address] Care Team Providers Name Role Phone Jose Angel Gray Primary Care Provider Reason for Visit Reason Comments Follow Up Surgery s/p BBR 6 month f/u Encounter Details Date Type Department Care Team Description 08/27/2013 Follow-Up Plastic Surgery at Modesto Perez MD S/P bilateral breast [facility] reduction (Primary Dx) [facility] DR Martinez [place] [address] [place] [address] [phone] (Wo rk) Social History Tobacco Use Types Packs/Day Years Used Date Never Smoker Smokeless Tobacco: Never Used Alcohol Use Standard Drinks/Week Comments Yes 5.8 (1 standard drink = 0.6 oz pure alco hol) Sex Assigned at Date Recorded Not on file documented as of this encounter Progress Notes Modesto Perez MD - 08/27/2013 9:02 AM EDT Nancy Pimentel returned to our office today for post surgical follow-up SURGERY DATE: 01/24/13 OPERATION: Bilateral breast reduction (elizabeth) Complications: none HPI: doing well; pleased with the outcome of surgery.She reports complete NAC sensory recovery. 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 She has been massaging and this is helping. Her left breast is slightly larger than the right breast, She reports she had some asymmetry prior to reduction surgery. Her breast are symmetric in a bra and clothing. She is very happy with the results. She still has some shoulder discomfort and is seeing a therapist muscle massages. She completed a breast related questionnaire and pertinent findings are: PLASTICS BREAST QUESTIONS 11/15/2012 08/27/2013 Headaches? Some of the time None of the time Pain in your breast area? A little of the time Some of the time Lack of energy? Some of the time Some of the time Difficulty doing vigorous physical activities (e.g. running or exercising)? Most of the time A little of the time Feeling physically unbalanced? Most of the time Most of the time Shoulder pain? Most of the time All of the time Difficulty sleeping because of discomfort in your breast area? None of the time None of the time Neck pain? Most of the time Most of the time Painful gouges or grooves in your shoulders from your bra straps? All of the time Most of the time Feeling physically uncomfortable? Most of the time A little of the time Rashes under your breasts? None of the time None of the time Back pain? Most of the time Some of the time Arm pain? None of the time None of the time Pain, numbness or tingling in your hands because of your breast size? A little of the time - Physical Examination:Left breast slightly larger than the contralateral right breast, good scar maturation. No masses. NAC sensate left is hypersensitive. Impression: S/P bilateral breast reduction. Satisfactory post operative course. I will have Her conintue massage to desensitze the left NAC. She is very happy with the size of her breasts. Plan: Final photos. She may now follow her PCP's recommendations for mammograms. No further active care required. I, Opal Stokes, am acting as scribe for Dr Perez. All work documented was performed by Dr Perez. ???I performed the above scribed service and agree with the accuracy of the note?? Modesto Perez MD documented in this encounter Plan of Treatment Not on filedocumented as of this encounter Visit Diagnoses Diagnosis S/P bilateral breast reduction - Primary Other postprocedural status documented in this encounter Care Teams Lot Technician Relationship Specialty Start Date End Date Jose Angel Gray DO PCP - General 01/27/[address] [place] [address] documented as of this encounter
--- OUTSIDE RECORDS SUMMARY | 2021-10-23 01:08 | XMS_ITS | Encounter Summary ---
:1965 Author Organization [facility] Address [address] [place] [address] Care Team Providers Name Role Phone Jose Angel Gray DO Primary Care Provider Encounter Details Date Type Department Care Team Description 03/06/2018 Hospital En[facility] Unknown, Provider, [facility] [address] [place] [address] [place] [address] (Work) [phone] Social History Tobacco Use Types Packs/Day Years Used Date Never Assessed Sex Assigned at Date Recorded Not on file documented as of this encounter Discharge Disposition Disposition Code Departure Means Destination Home or Self Longterm documented in this encounter Plan of Treatment Not on filedocumented as of this encounter Visit Diagnoses Not on filedocumented in this encounter Care Teams Bullet Casting Operator Relationship Specialty Start Date End Date Jose Angel Gray DO PCP - General 01/11/15 [address] [place] [address] documented as of this encounter
--- OUTSIDE RECORDS SUMMARY | 2021-10-23 01:08 | XMS_ITS | Encounter Summary ---
:1965 Author Organization [facility] Address [address] [place] [address] Care Team Providers Name Role Phone Unavailable Primary Care Provider Unavailable Encounter Details Date Type Department Care Team Description 06/22/2011 Results Only [facility] Charles Thompson, [facility] Laboratory Services - [address] [place] [address] [phone] [place] [address] [id number] [phone] Social History Tobacco Use Types Packs/Day Years Used Date Never Assessed Sex Assigned at Date Recorded Not on file documented as of this encounter Plan of Treatment Not on filedocumented as of this encounter Procedures Procedure Name Priority Date/Time Associated Diagnosis Comme nts PAP TEST- RESULT Routine 06/22/2011 0:00 EDT Resu lts for this ONLY procedure are i n the results section. documented in this encounter Results PAP TEST- RESULT ONLY (06/22/2011 0:00 EDT) Pathology Report: CYTOPATHOLOGY REPORT [facility] Reports generated via electronic interface contain jasmine ginal data; however they are lacking the format of the original re port. Caution should be taken when reading/interpreting unfo rmatted reports. Name: ? HAILE STOVALL ? Accession #: ? [id number] ? : ? 1965 (Age: 45) ??F ?Collect Da te: ? 06/22/2011 ? Location: ? [facility] ? Receive Date: ? 012 ? Provider: ANGELICA THOMPSON [facility] Copy to: REBECCA CAMPOS DO ? Final Report SPECIMEN ADEQUACY ? Satisfactory for Evaluation - transformation zone component present - scant squamous epithelial component secondary to exc essive blood GENERAL CATEGORIZATION ? Other, see interpretation INTERPRETATION ? Reactive cellular osmin nges associated with inflammation present (includes repair). Endometrial cells present in a woman equal to or great er than age 40. Negative for Intraepithelial Lesion. EDUCATIONAL NOTES/RECOMMENDATIONS ? Benign appearing endometrial cells on Pap tests are usually a normal finding in women with regular menstrual cycles, especially if the Pap test was collected during the first half of the menstrual cycle . There is data showing that e ndometrial cells on Pap tests may be associated with endometrial/uterine abnormal ities in post menopausal women or in perimenopausal women with abnormal bleeding. There is limited data on the significance of gopi ign endometrial cells in post menopausal women on HRT. ??Clinical correlation is rec ommended. Note: ??The Pap test is not an accurate test for the screening of endometrial lesions and should not be used as a follow up in patie nts with clinical suspicion of endometrial pathology. Last Menstural Period: 06/21/11 Specimen/Source: ??Pap Test, Cervix/Endocervix, ThinPr ep Imaging System with manual evaluation Document reviewed and electronically signed by: ? STELLA KING [facility] ? Report ??Date: 07/01/2011 16:03 HPV with Pap Test ? Date Ordered: ? 07/01/2011 ? Status: ?? Signed Out ?Date Complete: ? 07/05/2011 ? By: ??S ystem Interface ? Date Reported: ? 07/05/2011 ? Interpretation RESULT: Negative for HPV. No E6 or E7 mRNA is detected from HPV types 16,18,31,3 3,35, 39,45,51,52,56,58,59,66, and 68 by air conditioning specialist media johann amplification. Comments Document reviewed and electronically signed by: ? System Interface ? Report date: 07/05/2011 By the signature above, the attending physician certif ies that he/she has personally conducted a gross and/or microscopic examin ation of the described specimens and rendered or confirmed the above diagnosi s. End of Report Specimen Performing Organization Address City/State/ZIP Code Phon e Number [facility] [address] [place] [address] SERVICES [facility] [address] [place] [address] documented in this encounter Visit Diagnoses Not on filedocumented in this encounter
--- OUTSIDE RECORDS SUMMARY | 2021-10-23 01:08 | XMS_ITS | Encounter Summary ---
:1965 Author Organization [facility] [address] Care Team Providers Name Role Phone Jose Angel Gray Primary Care Provider Reason for Visit Reason Comments Follow-up s/p bbr yesterday pt here fo r drain removal Encounter Details Date Type Department Care Team Description 01/25/2013 Clinical Support Plastic Surgery at NURSE, PLASTIC [place] villegas follow-up [facility] SURGERY (Primary Dx) [place] [phone] Social History Tobacco Use Types Packs/Day Years Used Date Never Smoker Smokeless Tobacco: Never Used Alcohol Use Standard Drinks/Week Comments Yes 5.8 (1 standard drink = 0.6 oz pure alco hol) Sex Assigned at Date Recorded Not on file documented as of this encounter Progress Notes Claudia Hatfield RN - 01/25/2013 10:26 AM EST Reason For visit : S/P BBR elizabeth Pt here for drain removal Subjective : patient reports 4 /10 for pain Objective : The drains were removed without complication , drain sites cleansed with a wound cleanser and dry dressings re applie d - with instructions to leave this dressing in place for 24 hours. Both breasts are soft and equal in size. Swelling is mild on the right and mild on the left. Ecchymosis is mild on the right and mild on the left. The incision lines are well approximated with skin glue intact. The NACs have good perfusion. Nipples have normal projection. Areolar incisions are approximated with no drainage. ISurgical bra fitted and in use. Patient denies nausea or vomiting. Assessment : There no sign of seroma or hematoma Plan : Instructions on drain site and incisional care, showering, pain control, and activity restrictions as well as parameters for normal post operative swelling and bruising were reviewed. Pt agrees with plan of care,and was instructed to call with any concerns. Follow up appointment next week with Earlene Mireles APRN . documented in this encounter Plan of Treatment Not on filedocumented as of this encounter Visit Diagnoses Diagnosis Surgery follow-up - Primary Follow-up examination, following unspeci fied surgery documented in this encounter Care Teams Jacquard Fixer Relationship Specialty Start Date End Date Jose Angel Gray DO PCP - General 01/27/[address] [place] [address] documented as of this encounter
--- OUTSIDE RECORDS SUMMARY | 2021-10-23 01:08 | XMS_ITS | Encounter Summary ---
:1965 [place] [address] Care Team Providers Name Role Phone IsaacJose Angel craven Primary Care Provider Encounter Details Date Type Department Care Team Description 01/24/2013 Surgery Main Operating Room Modesto Taveras MD REDUCTION MAMMOPLASTY, [facility] (WRVU 16.03) [facility] [place] [address] [place] [address] [phone] Social History Tobacco Use Types Packs/Day Years Used Date Never Smoker Smokeless Tobacco: Never Used Alcohol Use Standard Drinks/Week Comments Yes 5.8 (1 standard drink = 0.6 oz pure alco hol) Sex Assigned at Date Recorded Not on file documented as of this encounter Last Filed Vital Signs Vital Sign Reading Time Taken Comments Blood Pressure 104/52 01/24/2013 11:00 AM EST Pulse 57 01/24/2013 11:00 AM EST Temperature 36.6 ??C (97.9 ??F) 01/24/2013 10:27 AM EST Respiratory Rate 16 01/24/2013 11:00 AM EST Oxygen Saturation 92% 01/24/2013 11:00 AM EST Inhaled Oxygen Concentration - - Weight 73.9 kg (163 lb) 01/24/2013 6:08 AM EST Height 166.4 cm (5' 5.5) 01/24/2013 6:08 AM EST Body Mass Index 26.71 01/24/2013 6:08 AM EST documented in this encounter Discharge Instructions Discharge InstructionsKathya Sullivan RN - 01/24/2013 10:31 AM EST POST ANESTHESIA INSTRUCTIONS Go home, rest, use caution on stairs. Change positions slowly. Do not smoke if you are alone. Diet light to regular as tolerated today. If nausea occurs start with clear liquids and progress slowly. No driving, operating machinery, alcoholic beverages and no important decisions for 24 hours. Monitor IV site for signs and symptoms of infection: increasing redness, swelling, foul drainage, ifoccurs contact M.D. Patients who have had endotrachial tubes (this tube, used by anesthesia department, is passed down your throat after you are asleep, to ensure safe air passage during your operation). A sore throat is normal due to the tube. Cold liquids or soothing lozenges will help ease the discomfort. The generalized muscle aches are due to the medication given to you just before the tube is inserted. As the medication wears off, you may develop muscle soreness, which usually goes away in 12-24 hours. Patient InstructionsWuDex MD - 01/24/2013 10:26 AM EST You should have a pink booklet that says: Breast Reduction: Instructions for before and after surgery. This was written by your surgeon and has more detailed instructions. The healing process after breast reduction surgery varies with each person. You should expect to feel tired for the first 2 - 3 weeks due to anesthesia and the healing process. Rest often during the day and get a good night sleep. With any surgery there is some discomfort or pain. We will prescribe pain medication, usually a narcotic and an anti-inflammatory. Take both as prescribed and only as needed. Shooting pain and burning sensations are normal and will subside as you heal. Breast swelling is normal as is mild bruising. Expect to have some pink, red, or clear drainage from your incisions for the first 1 to 2 weeks. Continue to use gauze dressing until the drainage is gone. Spitting sutures: Occasionally an area of redness and tenderness develops where a dissolving stitch becomes irritated and pushes to the surface. This stitch is clear and looks like fish line. If this occurs, it is not an emergency. You may clip the stitch or call the clinic for an appointment with a nurse. Your breasts will take about 6 months to acquire their new shape. GETTING A GOOD NIGHT SLEEP Your surgeon may ask you to sleep on your back for a few weeks. Here are some suggestions for a goodnights sleep. Try sleeping in a recliner. Have extra pillows in your bed for support: two along your side and one under your knees to relieve lower back pressure. Buy a large body pillow or a pillow with arm rests for sitting up in bed. GETTING OUT OF BED You will be asked to limit the use of your arms for a few weeks after surgery. This can be a problemwhen trying to get out of bed. The following suggestions help you get out of bed with minimal use ofyour arms. When in bed, pull your knees up towards your chest and tip to the side, gently rolling out of bed. Take care not to roll onto your breasts. Create a nest of pillows to prop you in a semi-upright position helps give you that extra boost to get out of bed. Have someone put gentle pressure to your lower shoulder blades as you sit up. This gives you the extra power you need to get to your feet. SHOWERING AND BATHING If you have breast drains, the nurses usually remove them within the first 3 days following surgery.You may shower 2 days after surgery (or as directed by your doctor). Do wash by gently touching yourbreasts. Be sure to have someone nearby when taking your first shower in case you feel dizzy. Remember your center of gravity will be different and you will be taking a narcotic. DO???S AND DON???TS FOR THE NEXT [address] a motor vehicle for 1-2 weeks or until you can handle the steering wheel without discomfort. Do not drive while taking your narcotic. You will be able to wear a seat belt if you place a small pillow over your chest area. Do not engage in sexual activity for at least 1 week. Do not smoke or be around anyone who smokes for 2 weeks after your surgery. Smoking delays healing and can lead to infection. Do not lift more than 5 pounds or bend at the waist to lift for 6 weeks. Do not participate in strenuous activities such as running or aerobics for 6 weeks. Do resume walking at a gentle pace. Protect your incisions from the sun for 6 months. You may return to work in 1-6 weeks (average time is 3 weeks) depending upon your work activity. Do report if pain and swelling in one breast is much greater then the other. Do report signs of infection. SIGNS OF INFECTION: A temperature over 100.4???F or 38???C. Redness at the incision line that is beginning to spread away from the incision after the first 48 hours. Yellow pus-like or foul smelling drainage larger than dime size from the incisions or drainage sites. Increased pain or discomfort that is not relieved by your pain medicine. CONTACT INFORMATION: Contact your doctor during office hours: Tuesday through Tuesday 8 am to 5 pm Call [phone] On weekends or after hours: Call [phone] and ask the plaster machine operator to page the Plastic Surgeon public opinion survey taker. Prescription Line: Tuesday through Tuesday 8 am to 4 pm Call [phone] Narcotic renewals will not be honored after hours or on weekends. Make your request a few days before you run out as it may take up to 24 hours for physician approval. documented in this encounter Medications at Time of Discharge Medication Sig Dispensed Refills Start Date End Date OXYcodone (ROXICODONE) 5 Take 1-2 tablets by 40 tablet 0 02/07/2013 mg immediate release mouth every 4 hours tablet as needed for Pain. documented as of this encounter H&P Notes Dxe Unger MD - 01/24/2013 6:47 AM EST 24 hour interval history and physical exam: Haile Stovall's condition unchanged since H&P originally performed 47 y/o female presented with chronic thoracic back pain due to macromastia. She had a mammogram thisyear which was negative. No new medications or diagnoses. PE: Blood pressure 112/60, pulse 56, temperature 36.9 ??C (98.4 ??F), temperature source Oral, resp.rate 16, height 166.4 cm (5' 5.5), weight 73.936 kg (163 lb), last menstrual period 01/05/2013, SpO2 100.00%. Gen: NAD Resp: CTAB CV: RRR Breasts: left breast larger than right, grade III ptosis A/P: symptomatic macromastia - for bilateral breast reduction today - risks and benefits discussed - risks include bleeding, infection, scar, asymmetry, skin/nipple loss, nipple numbness, seroma/hematoma, wound dehiscence, and need for further surgery - she understands and wishes to proceed documented in this encounter Miscellaneous Notes OR Attestation - Modesto Taveras MD - 01/24/2013 1:41 PM EST Attestation: Case Date: 01/24/2013 I was present and I participated during the entire procedure (does not need to include opening and closing). MODESTO TAVERAS MD 01/24/2013 Op Note - Modesto Taveras MD - 01/24/2013 12:03 PM EST [facility] Operative Note Patient Name: Haile Stovall : [id number] MR#: [id number] Case Date: 01/24/2013 Surgeon: Surgeon(s) and Role: * Modesto Taveras MD - Primary * Dex Unger MD - Resident-Surgeon Shant Preoperative diagnosis: symptomatic macromastia Postoperative diagnosis: symptomatic macromastia Procedure(s): REDUCTION MAMMOPLASTY, SHREYA MODIFIER LUCIANO Anesthesia: General Estimated Blood Loss: 50 cc Drains: adrian x2 Disposition: awakened from anesthesia, extubated and taken to the recovery room in a stable condition, having suffered no apparent untoward event. Condition: doing well without problems (Please see the Surgical Encounter Summary for any Implant and Specimen details pertinent to this patient.) HPI/Surgical Indications: 47 y/o female presents with chronic back pain due to symptomatic macromastia and will undergo bilateral breast reduction today. Procedure Description: Informed consent was obtained. The risks, benefits, and alternatives were discussed with the patient. The risks include bleeding, infection, scar, asymmetry, seroma/hematoma, skin/nipple loss, delayed wound healing, and need for further surgery. She understands and wishes to proceed. She was marked for a Luciano pattern reduction in standing position. She was then taken to the operating room and placed in supine position on the operating table. All monitoring equipment was placed, SCD's applied and functioning. General endotracheal anesthesia was then obtained. The chest was prepped and draped in sterile fashion with chloraprep. Time-out was performed, confirming the patient's name, medical record number, birthdate, and procedure. Ancef 2 g IV was given preoperatively. Stab incisions were made in the inferior pole of each breast. Tumescent solution (lidocaine, epinephrine, saline) was infiltrated into the breasts. The nipple- areolar complex was marked with a 42 mm template, and the mccormick anatomic landmarks were tattooed with methylene blue. A breast tourniquet was placed at the base of each breast. Superficial incisions into the dermis were made around the around thewise pattern and pedicle. The superomedial pedicle was then deepithelialized. The pedicle was then developed down to the chest wall, ensuring no undermining was performed to maximize perfusion to the nipple. The remainder of the Luciano incisions were then made full thickness through the skin and deepened to the pectoralis fascia. Starting superiorly, excess breast tissue was elevated off the pectoralisfascia, leaving a thin layer of fat over the muscle. Dissection then started inferomedially and proceeded inferolaterally, removing the excess breast tissue in a similar fashion. The superior and inferior appendages were retracted radially, and a lateral flap was developed at the level of the superficial breast fascia. The breast tissue was weighted, and symmetry was assured. A total of 620 g was excised from the right breast, and 560 g was removed from the left breast. The wounds were copiously irrigated with saline, and hemostasis was obtained. 19 Fr adrian drains were placed in the inferior breast pocket and secured with 2-0 prolene. The superomedial pedicle was then rotated into place, and the Luciano construct was secured with dennys. Once again, symmetry was confirmed. The incisions were closed with 4-0 PDS deep dermal sutures and 4-0 monocryl subcuticular sutures, starting first at the nipple and then the remainder of the incisions. Dermaflex was then applied. Sterile gauze and surgical brawere placed. At the conclusion of the case, the breasts were symmetric and nipples were viable. Needle, sponge, and instrument counts were correct. There were no intraoperative complications. The patient was extubated and taken to the PACU in stable condition. Brief Op Note - Dex Unger MD - 01/24/2013 10:25 AM EST Brief Operative Note Patient Name: Haile Stovall : [id number] MR#: [id number] Case Date: 01/24/2013 Surgeon: Surgeon(s) and Role: * Modesto Taveras MD - Primary * Dex Unger MD - Resident-Surgeon Shant Preoperative diagnosis: symptomatic macromastia Postoperative diagnosis: symptomatic macromastia Procedure(s): REDUCTION MAMMOPLASTY, SHREYA MODIFIER LUCIANO SEE PROTOCOL Anesthesia: General Findings: 560 g removed from left breast, 620 g removed from right breast Complications: none Fluids: 1100 cc Estimated Blood Loss: 50 cc Drains: adrian x2 Disposition: awakened from anesthesia, extubated and taken to the recovery room in a stable condition, having suffered no apparent untoward event. Condition: doing well without problems (Please see the Surgical Encounter Summary for any Implant and Specimen details pertinent to this patient.) Miscellaneous - Provider, Scanning - 01/24/2013 9:19 AM EST documented in this encounter Plan of Treatment Not on filedocumented as of this encounter Procedures Procedure Name Priority Date/Time Associated Diagnosis Comme nts SURGICAL PATHOLOGY Routine 01/24/2013 9:36 AM Res ults for this REPORT EST procedure are i n the results section. SPECIMEN TO Routine 01/24/2013 9:12 AM Results f or this PATHOLOGY EST procedure are i n the results section. SPECIMEN TO Routine 01/24/2013 9:12 AM Results f or this PATHOLOGY EST procedure are i n the results section. SEE PROTOCOL Yes 01/24/2013 7:25 AM macromastia EST MODIFIER LUCIANO Yes 01/24/2013 7:25 AM macromastia EST REDUCTION Yes 01/24/2013 7:25 AM macromastia MAMMOPLASTY, SHREYA EST (WRVU 16.03) HEMOGLOBIN STAT 01/24/2013 5:49 AM Results f or this EST procedure are i n the results section. documented in this encounter Results Surgical Pathology Report (01/24/2013 9:36 AM EST) [facility] Method Time Signature Surgical CERNER Pathology ? [facility] Report ? Provider: ?? MODESTO TAVERAS JR ?Pt. Name: ?? HAILE STOVALL ? Acc #: ?[id number] ?Pt. MRN: ?[id number] ? Col Date: ?? 01/25/20 13 ?/Sex: ?1965,(47 years),Female ? Rec Date: ?? 01/24/2013 ?LOC: ?SDP ? SURGICAL PATHOLOGY ? ---Pathologic Diagnosis--- ? A- Right breast tissue, clinical hypertrophy, 627 gra ms: ?Benign breast tissue with fibrocystic change wit h cysts and ?apocrine metaplasia ? B- Left breast tissue, clinical hypertrophy, 570 gram s: ?Benign breast tissue with fibrocystic change wit h cysts ? 01/26/13 ? VAM ? 01/26/13 Verified by: ? Oleg Lundy MD ? Pathologist ? (Electronic Si gnature) ? The attending pathologist whose signature appears o n this report has ? reviewed all diagnostic slides and has edited the maria elena ss and/or ? microscopic portion of the report in rendering the fi nal pathologic ? diagnosis. ? ---Gross Description--- ? A- Labeled/Fixative: right breast tissue, 0.,620kgs F resh. ? Qty/Size/Weight: Multiple, 22.0 x 17.2 x 4.0 cm, 627 grams. ? Tissue Description: Fibrofatty br east tissue with attached and detached ? mcmullen-pink skin. ? Skin: Unremarkable. ? Parenchyma: Adipose and dense, govea-white fibrous tis maximiliano. ? Sections/Processing: (R3) ? B- Labeled/Fixative: left breast tissue, 0.,560kgs, F resh. ? Qty/Size/Weight: Multiple, 24.2 x 18.0 x 4.6 cm, 570 grams. ? Tissue Description: Fibrofatty br east tissue with attached and detached ? mcmullen-pink skin. ? Skin: Unremarkable. ? Parenchyma: Adipose and dense, govea-white fibrous tis maximiliano. ? Sections/Processing: (R3) cecy ? ---Clinical Information--- ? Specimen Submitted: ? A - Rt breast tissue, 0.620kgs ? B - Lt breast tissue, 0.560kgs ? Clinical History: ? macromastia ? [facility] ? Provider: ?? MODESTO TAVERAS JR ?Pt. Name: ?? HAILE STOVALL ? Acc #: ?[id number] ?Pt. MRN: ?[id number] ? Col Date: ?? 01/25/20 13 ?/Sex: ?1965,(47 years),Female ? Rec Date: ?? 01/24/2013 ?LOC: ?SDP ? SURGICAL PATHOLOGY ? Clinical Diagnosis: ? macromastia Specimen (Source) Anatomical Collection Method Collection Time Re ceived Time Location / / Volume Laterality 01/24/2013 9:36 AM EST Modesto Taveras MD PATHOLOGY/CYTOLOGY ORDERABLE S Performing Organization Address City/[facility]/[place]IP [place] [address] CERNER MILLENNIUM Specimen to Pathology (surgical or derm) (01/24/2013 9:12 AM EST) Specimen Anatomical Collection Method Collection Time Receive d Time (Source) Location / / Volume Laterality AP Specimen 01/24/2013 9:12 AM 3 9:12 EST AM EST Narrative CERNER MILLENNIUM - 01/24/2013 9:[address] Specimen requisition ordered. ??Separate Pathology report to follow Modesto Taveras MD PATHOLOGY/CYTOLOGY ORDERABLE S Performing Organization Address City/[facility]/ZIP Code Phon e Number [address] CERNER MILLENNIUM Specimen to Pathology (surgical or derm) (01/24/2013 9:12 AM EST) Specimen Anatomical Collection Method Collection Time Receive d Time (Source) Location / / Volume Laterality AP Specimen 01/24/2013 9:12 AM 3 9:12 EST AM EST Narrative CERNER MILLENNIUM - 01/24/2013 9:[address] Specimen requisition ordered. ??Separate Pathology report to follow Modesto Taveras MD PATHOLOGY/CYTOLOGY ORDERABLE S Performing Organization Address City/[facility]/ZIP [place] [address] CERNER MILLENNIUM Hemoglobin (01/24/2013 5:49 AM EST) P athologist Signature Hemoglobin 13.8 11.2 - 15.7 CERNER gm/dL MILLENNIUM Specimen Anatomical Collection Method Collection Time Receive d Time (Source) Location / / Volume Laterality Blood specimen 01/24/2013 5:49 AM 013 5:52 (specimen) EST AM EST Resulting Agency Comment Spec In Lab Modesto Taveras MD HEMATOLOGY ORDERABLES Performing Organization Address City/State/[place] [address] [facility] documented in this encounter Visit Diagnoses Not on filedocumented in this encounter Administered Medications Inactive Administered Medications - up to 3 most recent administrations Medication Order MAR Action Action Date Dose Rate Site BUpivacaine (PF) Given 01/24/2013 8:05 AM 100 mg 19- Surgical Site (MARCAINE) 0.5 % (5 EST mg/mL) injection ONCE PRN, Starting on Tue01/24/13 at 0805, Until Tue01/24/13 at 1638, Intra-Operative (Intra-Procedure), Routine fentaNYL 50mcg/mL injection Given 01/24/2013 10:50 AM EST 50 mcg 25-50 mcg, Intravenous, EVERY 5 MIN PRN, Starting on Tue01/24/13 at 1031, Until Tue01/24/13 at 1638, Pain, for breakthrough pain, Hold for respiratory rate less than 10 per minute. Maximum dose: 250 mcg over one hour., PACU Recovery, Routine Given 01/24/2013 10:37 AM EST 50 mcg HYDROmorphone (DILAUDID) injection 0.2-0.4 Given 01/24/2013 11:27 AM EST 0.2 mg mg 0.2-0.4 mg, Intravenous, EVERY 5 MIN PRN, Starting on Tue01/24/13 at 1031, Until Tue01/24/13 at 1638, Pain, For moderate pain give: 0.2 mg every 5 minute prn For severe pain give: 0.4 mg every 5 minutes prn Maximum dose: 4 mg per hour Hold for respiratory rate less than 10 per minute., PACU Recovery, Routine methylene blue 1 % injection Given 01/24/2013 8:08 AM EST 10 mg ONCE PRN, Starting on Tue01/24/13 at 0808, Until Tue01/24/13 at 1638, Intra-Operative (Intra-Procedure) OXYcodone (ROXICODONE) immediate release Given 01/24/2013 11:24 AM EST 10 mg tablet 5-10 mg 5-10 mg, Oral, EVERY 4 HOURS PRN, Starting on Tue01/24/13 at 0649, Until Tue01/24/13 at 1638, Pain, Routine documented in this encounter Active and Recently Administered Medications Times are shown in EST. Scheduled Medication Order 01/22/2013 01/23/2013 01/24/2013 ceFAZolin (ANCEF) 1g in dextrose 5% 50mL (COMPLETED) 0630 (Due)0751 (Given - Provider: Jann Newell CRNA) 1 g = 1,000 mg, Intravenous, ONCE, 1 dos e, Tue01/24/13 at 0630, for 30 Minutes, Day of Surgery (Day of Procedure), Indication (Active or Suspected): Prophylaxis PRN Medication Order 01/22/2013 01/23/2013 01/24/2013 BUpivacaine (PF) (MARCAINE) 0.5 % (5 mg/mL) injection (CANCELED) 0805 (Given - Provider: Modesto Taveras MD) ONCE PRN, Starting Tue01/24/13 at 0805, Until Tue01/24/13 at 1638, Intra- Operative (Intra-Procedure), Routine fentaNYL 50mcg/mL injection (CANCELED) 1037 (Given - Provider: Kathya Sullivan RN)1050 (Given - Provider: Kathya Sullivan RN) 25-50 mcg, Intravenous, EVERY 5 MIN PRN, Starting Tue01/24/13 at 1031, Until Tue01/24/13 at 1638, Pain, for breakthrough pain, Hold for respiratory rate less than 10 per minute. Maximum dose: 250 mcg over one hour., PACU Recovery, Routine HYDROmorphone (DILAUDID) injection 0.2-0.4 mg (CANCELED) 1127 (Given - Provider: Kathya Sullivan RN) 0.2-0.4 mg, Intravenous, EVERY 5 MIN PRN , Starting Tue01/24/13 at 1031, Until Tue01/24/13 at 1638, Pain, For moderate pain give: 0.2 mg every 5 minute prn For severe pain give: 0.4 mg every 5 minutes prn Maximum dose: 4 mg per hour Hold for respiratory rate less than 10 per minute., PACU Recovery, Routine methylene blue 1 % injection (CANCELED) 0808 (Given - Provider: Modesto Taveras MD - Comment: used for marking.) ONCE PRN, Starting Tue01/24/13 at 0808, Until Tue01/24/13 at 1638, Intra- Operative (Intra-Procedure), Routine OXYcodone (ROXICODONE) immediate release tablet 5-10 mg 1124 (Given - Provider: Kathya Sullivan RN) 5-10 mg, Oral, EVERY 4 HOURS PRN, Starti ng Tue01/24/13 at 0649, Until Tue01/24/13 at 1638, Pain, Routine documented in this encounter Care Teams Leaf Coverer Relationship Specialty Start Date End Date Jose Angel Gray DO PCP - General 01/27/[address] [place] [address] documented as of this encounter
--- OUTSIDE RECORDS SUMMARY | 2021-10-23 01:08 | XMS_ITS | Encounter Summary ---
:1965 [place] [address] Care Team Providers Name Role Phone Jose Angel Gray DO Primary Care Provider Encounter Details Date Type Department Care Team Description 12/04/2012 Orders Only Wound Care at [facility] Sol[facility] MD [facility] [place] [address] [place] [address] [phone] (Wo rk) Social History Tobacco Use Types Packs/Day Years Used Date Never Smoker Smokeless Tobacco: Never Used Alcohol Use Standard Drinks/Week Comments Yes 5.8 (1 standard drink = 0.6 oz pure alco hol) Sex Assigned at Date Recorded Not on file documented as of this encounter Plan of Treatment Pending Results Name Type Priority Associated Diagnoses Date/Ti me Film Library- Storage Imaging Routine 2012 12:55 PM EDT only Mammo documented as of this encounter Visit Diagnoses Not on filedocumented in this encounter Care Teams Job Development Specialist Relationship Specialty Start Date End Date Jose Angel Gray DO PCP - General 01/27/[address] [place] [address] documented as of this encounter
--- OUTSIDE RECORDS SUMMARY | 2021-10-23 01:08 | XMS_ITS | Clinical Summary ---
:1965 Author Organization [facility] Address [address] [place] [address] Care Team Providers Name Role Phone Jose Angel Gray DO Primary Care Provider Social History Tobacco Use Types Packs/Day Years Used Date Never Assessed Sex Assigned at Date Recorded Not on file Plan of Treatment Not on file Care Teams Loader Relationship Specialty Start Date End Date Jose Angel Gray DO PCP - General 01/11/15 [address] [place] [address]
--- OUTSIDE RECORDS SUMMARY | 2021-10-23 01:08 | XMS_ITS | Encounter Summary ---
:1965 Author Organization [facility] Address [facility] [address] [place] [address] Care Team Providers Name Role Phone Jose Angel Gray DO Primary Care Provider Reason for Visit Reason Comments Follow Up Surgery s/p dos 01/24 bbr Encounter Details Date Type Department Care Team Description 02/07/2013 Office Visit Plastic Surgery at Joanne Mireles, Other specified [facility] aftercare following [facility] viviana villegas (Primary Dx) Drive [place] PLASTIC SURGERY [id number] [place] [address] [phone] Social History Tobacco Use Types Packs/Day Years Used Date Never Smoker Smokeless Tobacco: Never Used Alcohol Use Standard Drinks/Week Comments Yes 5.8 (1 standard drink = 0.6 oz pure alco hol) Sex Assigned at Date Recorded Not on file documented as of this encounter Patient Instructions Patient Maggi Arroyo RN - 02/07/2013 10:45 AM EST -SCAR MASSAGE TECHNIQUE: to begin 1 month following surgery What is a scar? When an injury occurs, the body immediately begins to repair itself & the area becomes swollen & sore. Eventually small collagen fibers form, becoming a solid tissue that results in a scar. This scar will continue to change in appearance for 1-2 years. Ideally, a scar is smooth & flat, blending in with the surrounding skin. However, some scars may become highly visible & unattractive d ue to factors such as your age, scar location & size, nutrition, genetics, or infection. A hypertrophic scar occurs when there is an excess production of collagen tissue that is elevated but remains within the wound boundaries. The scar is tense, red, & can be associated with itching & tenderness. A hypertrophic scar can be ordinary (usually stabilizes in 3 months & may even get smaller and smoother) or keloid. The keloid scar invades nearby tissue that was not part of the original wound, tends to enlarge even after 6 months & does not get softer. Will scar massage make my scars disappear? Nothing can make scars disappear. However, massaging the scar assists the body in breaking down the scar tissue to give it a flatter, softer, appearance. Massage also mobilizes the scar, preventing it from adhering to underlying tissue, tendons, & nerves. You can make the greatest difference in the appearance of the scar if you massage it in the first 3 months. What should I use on my scars? You will hear many recommendations. This clinic finds that it is the massage itself that reduces thescar & not necessarily the choice of ointments or creams. We do discourage the use of Vitamin E oil, however, due to studies that have reported scar inflammation & deterioration. How do I massage my scars? Generously apply the lotion or cream into the scar 3-4 times a day for 8 weeks on new scars, and 3-4times per day for 3 to 6 months on existing scars. Using your finger, apply pressure to the scar in a crosswise & circular direction, bearing down as hard as tolerated. Remember to protect your scar from the sun, especially in the first 6-12 months, by using a moisturizer with sunblock and wearing a physical barrier (ie: a hat) when possible documented in this encounter Progress Notes Joanne Mireles APRN - 02/07/2013 10:51 AM EST Nancy Pimentel returned to our office today for post surgical follow-up SURGERY DATE: 01/24/13 OPERATION: Bilateral breast reduction (elizabeth) Complications: none Pain: 2/10 Specific complaints/comments: doing well; no complaints. She has not yet experienced any relief of her back pain. Physical Examination: good symmetry and good perfusion of NAC's bilaterally. Incisions healing well.No evidence of infection, seroma or hematoma. She was provided with a copy of her path report indicating benign breast tissue. Plan: instructed in care of incision lines and activity restrictions. Prescriptions provided: none Supplies: a dwight surgical bra was provided Follow up: 6 months or sooner PRN documented in this encounter Plan of Treatment Not on filedocumented as of this encounter Visit Diagnoses Diagnosis Other specified aftercare following surg garima - Primary documented in this encounter Care Teams Crew Caller Relationship Specialty Start Date End Date Jose Angel Gray DO PCP - General 01/27/[address] [place] [address] documented as of this encounter
--- OUTSIDE RECORDS SUMMARY | 2021-10-23 01:08 | XMS_ITS | Encounter Summary ---
:1965 Author Organization [facility] Address [address] [place] [address] Care Team Providers Name Role Phone Unavailable Primary Care Provider Unavailable Encounter Details Date Type Department Care Team Description 10/24/2006 Results Only [facility] - Mary Ornelas od, Pat Clifton, CANVAS WORKER conversion [address] [place] [phone] (Wo rk) Social History Tobacco Use Types Packs/Day Years Used Date Never Assessed Sex Assigned at Date Recorded Not on file documented as of this encounter Plan of Treatment Not on filedocumented as of this encounter Procedures Procedure Name Priority Date/Time Associated Diagnosis Comme [facility] CYTOPATHOLOGY Routine 10/24/2006 0:00 EDT Results for this procedure are i n the results section . documented in this encounter Results CYTOPATHOLOGY (10/24/2006 0:00 EDT) Pathology Report: CYTOPATHOLOGY REPORT [facility] Reports generated via electronic interface contain jasmine ginal data; however they are lacking the format of the original re port. Caution should be taken when reading/interpreting unfo rmatted reports. Name: ? HAILE STOVALL ? Accession #: ? [id number] : ? 1965 (Age: 41) ??F ?Collect Date: ? 10/06 Location: ? [facility] ? Receive Date : ? 10/25/2006 Provider: ?PAT DODSON CANVAS WORKER Copy to: ? Specimen/Source: ? ThinPrep Pap Test, Cervix/Endocervix, processed on Biodel ThinPrep Imaging System, with manual evaluation Last Menstrual Period: ? 10/05/06 Previous Gynecologic Pathology: ? Benign cellular changes: 1996 Other: ? HPVA - HPV testing requested if ASC-US on the current ThinPrep Pap test. ? SPECIMEN ADEQUACY ? Satisfactory for Evaluation - transformation zone component present GENERAL CATEGORIZATION ? Negative for Intraepithelial Lesion or Malignan cy ? Document reviewed and electronically signed by: ? FABRIZIO Cespedes(ASCP) ? Report Date: ??10/28/2006 16:43 End of Report Specimen Performing Organization Address City/State/ZIP Code Phon e Number [facility] [address] [place] [address] SERVICES [facility] [address] [place] [address] documented in this encounter Visit Diagnoses Not on filedocumented in this encounter
--- OUTSIDE RECORDS SUMMARY | 2021-10-23 01:08 | XMS_ITS | Encounter Summary ---
:1965 Author Organization [facility] Address [address] [place] [address] Care Team Providers Name Role Phone Jose Angel Gray DO Primary Care Provider Encounter Details Date Type Department Care Team Description 06/03/2017 Results Only [facility]- Pat Cancino, [facility] [phone] [facility] [place] [address] (Wo rk) Social History Tobacco Use Types Packs/Day Years Used Date Never Assessed Sex Assigned at Date Recorded Not on file documented as of this encounter Plan of Treatment Not on filedocumented as of this encounter Procedures Procedure Name Priority Date/Time Associated Diagnosis Comme nts PAP TEST- RESULT Routine 06/03/2017 0:00 EDT Resu lts for this ONLY procedure are i n the results section. documented in this encounter Results PAP TEST- RESULT ONLY (06/03/2017 0:00 EDT) Pathology Report: CYTOPATHOLOGY REPORT [facility] Reports generated via electronic interface contain jasmine ginal data; SERVICES however they are lacking the format of the original re port. Caution should be taken when reading/interpreting unfo rmatted reports. Name: ? HAILE STOVALL ? Accession #: ? [id number] ? : ? 1965 (Age: [age]) ??F ?Collect Date: ? 06/03/2017 ? Location: ? [facility] ? Receive Date: ? 8 ? Provider: PAT DODSON [facility] Copy to: JOSE ANGEL Walsh ANDRES DO ? Final Report SPECIMEN ADEQUACY ? Satisfactory for Evaluation - transformation zone component present GENERAL CATEGORIZATION ? Other, see interpretation INTERPRETATION ? Endometrial cells present in a woman equal to o r greater than age 45. Negative for Intraepithelial Lesion. EDUCATIONAL NOTES/RECOMMENDATIONS ? [...] with clinical suspicion of endometrial pathology. Last Menstrual Period: 05/27/2017 Specimen/Source: ??Pap Test, Cervix, ThinPrep Imaging System with manual evaluation Document reviewed and electronically signed by: ? JEFFERSON APARICIO MD ? Report ??Date: 06/14/2017 12:24 HPV with Pap Test ? Date Ordered: ? 06/14/2017 ? Status: ?? Signed Out ?Date Complete: ? 06/15/2017 ? By: ??Sy stem Interface ? Date Reported: ? 06/15/2017 ? Interpretation RESULT: Negative for HPV. No E6 or E7 mRNA is detected from HPV types 16,18,31,3 3,35, 39,45,51,52,56,58,59,66, and 68 by corner trimmer operator media johann jason. Comments Document reviewed and electronically signed by: ? System Interface ? Report date: 06/15/2017 By the signature above, the attending physician certif ies that he/she has personally conducted a gross and/or microscopic examin ation of the described specimens and rendered or confirmed the above diagnosi s. End of Report Specimen Performing Organization Address City/State/ZIP Code Phon e Number [facility] [address] [place] [address] SERVICES documented in this encounter Visit Diagnoses Not on filedocumented in this encounter Care Teams Milk Bottling Machine Operator Relationship Specialty Start Date End Date Jose Angel Gray DO PCP - General 01/11/15 [address] [place], [place] [address] documented as of this encounter
--- OUTSIDE RECORDS SUMMARY | 2021-10-23 01:08 | XMS_ITS | Encounter Summary ---
:1965 Author Organization [facility] [place] [address] Care Team Providers Name Role Phone IsaacJose Angel craven Primary Care Provider Encounter Details Date Type Department Care Team Description 01/24/2013 Hospital Encounter Same Day Program at Justyn Taveras MD [address] [phone] Social History Tobacco Use Types Packs/Day Years [...] Tuesday 8 am to 5 pm Call [phone] On weekends or after hours: Call [phone] and ask the methane gas collection system operator to page the Plastic Surgeon manager environmental services. Prescription Line: Tuesday through Tuesday 8 am to 4 pm Call [phone] Narcotic renewals will not be honored after [...] documented as of this encounter H&P Notes Dex Unger MD - 01/24/2013 6:47 AM EST [...] Taveras MD - 01/24/2013 12:03 PM EST [facility] Operative Note Patient Name: Haile Stovall : [id number] MR#: [id number] Case Date: 01/24/2013 Surgeon: Surgeon(s) and Role: [...] Operative Note Patient Name: Haile Stovall : [id number] MR#: [id number] Case Date: 01/24/2013 Surgeon: Surgeon(s) and Role: [...] Surgical Pathology Report (01/24/2013 9:36 AM EST) [facility] Method Time Signature Surgical CERNER Pathology ? [facility] Report ? Provider: ?? MODESTO TAVERAS JR ?Pt. Name: ?? HAILE STOVALL ? Acc #: ?[id number] ?Pt. MRN: ?[id number] ? Col Date: ?? 01/25/20 13 ?/Sex: [...] 0.560kgs ? Clinical History: ? macromastia ? [facility] ? Provider: ?? MODESTO TAVERAS JR ?Pt. Name: ?? HAILE STOVALL ? Acc #: ?[id number] ?Pt. MRN: ?[id number] ? Col Date: ?? 01/25/20 13 ?/Sex: ?1965,(47 years),Female ? Rec Date: ?? 01/24/2013 ?LOC: ?SDP ? SURGICAL PATHOLOGY ? Clinical Diagnosis: ? macromastia Specimen (Source) Anatomical Collection Method Collection Time Re ceived Time Location / / Volume Laterality 01/24/2013 9:36 AM EST Modesto Taveras MD PATHOLOGY/CYTOLOGY ORDERABLE S Performing Organization Address City/[facility]/[place] [address] CERNER MILLENNIUM Specimen to [...] MD PATHOLOGY/CYTOLOGY ORDERABLE S Performing Organization Address [facility]/[place] [address] CERNER MILLENNIUM Specimen to [...] MD PATHOLOGY/CYTOLOGY ORDERABLE S Performing Organization Address [facility]/[place] [address] CERNER MILLENNIUM Hemoglobin (01/24/2013 [...] Organization Address City/State/ZIP Code Phon e Number [place] [phone] [facility] documented in this encounter Visit Diagnoses Not on filedocumented in this encounter Administered Medications Inactive Administered Medications - up to 3 most recent administrations Medication Order MAR Action Action Date Dose Rate Site fentaNYL 50mcg/mL injection Given 01/24/2013 10:50 AM [...] than 10 per minute., PACU Recovery, Routine OXYcodone (ROXICODONE) immediate release Given 01/24/2013 11:24 [...] (COMPLETED) 0630 (Due)0751 (Given - Provider: Jann Newell, OPTICAL COATING TECHNICIAN) 1 g = 1,000 mg, Intravenous, ONCE, [...] injection (CANCELED) 1037 (Given - Provider: Kathya Sullivan, RN)1050 (Given - Provider: Kathya Sullivan, RN) 25-50 mcg, Intravenous, EVERY 5 MIN [...] Routine methylene blue 1 % injection (CANCELED) 08 (Given - Provider: Modesto Taveras MD - Comment: used for marking.) ONCE PRN, Starting Tue01/24/13 at 0808, Until Tue01/24/13 at 1638, Intra- Operative (Intra-Procedure), Routine OXYcodone (ROXICODONE) immediate release tablet 5-10 mg 1124 (Given - Provider: Kathya Sullivan, SHAKA) 5-10 mg, Oral, EVERY 4 HOURS PRN, Starti ng Tue01/24/13 at 0649, Until Tue01/24/13 at 1638, Pain, Routine documented in this encounter Care Teams Wheel Buffer Relationship Specialty Start Date End Date Jose Angel Gray DO PCP - General 01/27/[address] [place] [address] documented as of this encounter
--- OUTSIDE RECORDS SUMMARY | 2021-10-23 01:08 | XMS_ITS | Encounter Summary ---
:1965 Author Organization [facility] Address [address] [place] [address] Care Team Providers Name Role Phone Jose Angel Gray DO Primary Care Provider Encounter Details Date Type Department Care Team Description 06/03/2017 Hospital Encounter [facility]- Liz Unknown, Provider, [facility] [address] [place] [address] [place] [address] (Work) [phone] Social History Tobacco Use Types Packs/Day Years Used Date Never Assessed Sex Assigned at Date Recorded Not on file documented as of this encounter Discharge Disposition Disposition Code Departure Means Destination Home or Self Snf documented in this encounter Plan of Treatment Not on filedocumented as of this encounter Visit Diagnoses Not on filedocumented in this encounter Care Teams Turning Machine Operator Helper Relationship Specialty Start Date End Date Jose Angel Gray DO PCP - General 01/11/15 [address] [place] [address] documented as of this encounter
--- OUTSIDE RECORDS SUMMARY | 2021-10-23 01:08 | XMS_ITS | Encounter Summary ---
:1965 Author Organization [facility] Address [address] [place] [address] Care Team Providers Name Role Phone Unavailable Primary Care Provider Unavailable Encounter Details Date Type Department Care Team Description 11/05/2003 Results Only [facility] - Mary Ornelas od, Pat Clifton, CMM INSPECTOR conversion [address] [place] [phone] (Wo rk) Social History Tobacco Use Types Packs/Day Years Used Date Never Assessed Sex Assigned at Date Recorded Not on file documented as of this encounter Plan of Treatment Not on filedocumented as of this encounter Procedures Procedure Name Priority Date/Time Associated Diagnosis Comme [facility] CYTOPATHOLOGY Routine 11/05/2003 0:00 EDT Results for this procedure are i n the results section . documented in this encounter Results CYTOPATHOLOGY (11/05/2003 0:00 EDT) Pathology Report: CYTOPATHOLOGY REPORT [facility] Reports generated via electronic interface contain jasmine ginal data; however they are lacking the format of the original re port. Caution should be taken when reading/interpreting unfo rmatted reports. Name: ? HAILE STOVALL ? Accession #: ? [id number] : ? 1965 (Age: 38) ??F ?Collect Date: ? 10/07 Location: ? [facility] ? Receive Date : ? 11/07/2003 Provider: ?PAT DODSON CMM INSPECTOR Copy to: ? Specimen/Source: ?ThinPrep Pap Test, Cervix/ Endocervix Last Menstrual Period: ? 10/15/03 Previous Gynecologic Pathology: ? Benign cellular changes: 1996 Other: ? HPVA - HPV testing requested if ASC-US on the current ThinPrep Pap test. ? SPECIMEN ADEQUACY ? Satisfactory for Evaluation - transformation zone component present GENERAL CATEGORIZATION ? Negative for Intraepithelial Lesion or Malignan cy ? Document reviewed and electronically signed by: ? FABRIZIO Lombardo(ASCP) ? Report Date: ??11/12/2003 10:25 End of Report Specimen Performing Organization Address City/State/ZIP Code Phon e Number [facility] [address] [place] [address] SERVICES [facility] [address] [place] [address] documented in this encounter Visit Diagnoses Not on filedocumented in this encounter
--- OUTSIDE RECORDS SUMMARY | 2021-10-23 01:08 | XMS_ITS | Encounter Summary ---
:1965 Author Organization [facility] Address [address] [place] [address] Care Team Providers Name Role Phone Unavailable Primary Care Provider Unavailable Encounter Details Date Type Department Care Team Description 05/26/2001 Results Only [facility] - Mary Ornelas od, Pat Clifton, AGRICULTURAL TECHNICAL OFFICER conversion [address] [place] [phone] (Wo rk) Social History Tobacco Use Types Packs/Day Years Used Date Never Assessed Sex Assigned at Date Recorded Not on file documented as of this encounter Plan of Treatment Not on filedocumented as of this encounter Procedures Procedure Name Priority Date/Time Associated Diagnosis Comme [facility] CYTOPATHOLOGY Routine 05/26/2001 0:00 EST Results for this procedure are i n the results section . documented in this encounter Results CYTOPATHOLOGY (05/26/2001 0:00 EST) Pathology Report: CYTOPATHOLOGY REPORT [facility] Reports generated via electronic interface contain jasmine ginal data; however they are lacking the format of the original re port. Caution should be taken when reading/interpreting unfo rmatted reports. Name: ? HAILE STOVALL ? Accession #: ? [id number] : ? 1965 (Age: 35) ??F ?Collect Date: ? 05/06 Location: ? [facility] ? Receive Date : ? 05/30/2001 Provider: ?PAT DODSON AGRICULTURAL TECHNICAL OFFICER Copy to: ? Specimen/Source: ?ThinPrep Pap Test, Cervix/ Endocervix Last Menstrual Period: ? 05/13/01 Previous Gynecologic Pathology: ? Benign cellular changes: 1996 ? SPECIMEN ADEQUACY ? Satisfactory for Evaluation - transformation zone component present GENERAL CATEGORIZATION ? Negative for Intraepithelial Lesion or Malignan cy ? Document reviewed and electronically signed by: ? FABRIZIO Lora(ASCP) ? Report Date: ??06/01/2001 14:41 End of Report Specimen Performing Organization Address City/State/ZIP Code Phon e Number [facility] [address] [place] [address] SERVICES [facility] [address] [place] [address] documented in this encounter Visit Diagnoses Not on filedocumented in this encounter
--- OUTSIDE RECORDS SUMMARY | 2021-10-23 01:08 | XMS_ITS | Encounter Summary ---
:1965 Author Organization [facility] Address [address] [place] [address] Care Team Providers Name Role Phone IsaacJose Angel craven Primary Care Provider Reason for Visit Reason Comments Follow-up left breast pain and swellin g Encounter Details Date Type Department Care Team Description 03/13/2013 Follow-Up Plastic Surgery at Joanne Mireles, Other specified [facility] HEMODIALYSIS TECHNICIAN aftercare following [facility] viviana villegas (Primary Dx) [place] [address] PLASTIC SURGERY [phone] [place] [phone] (Wo rk) Social History Tobacco Use Types Packs/Day Years Used Date Never Smoker Smokeless Tobacco: Never Used Alcohol Use Standard Drinks/Week Comments Yes 5.8 (1 standard drink = 0.6 oz pure alco hol) Sex Assigned at Date Recorded Not on file documented as of this encounter Last Filed Vital Signs Vital Sign Reading Time Taken Comments Blood Pressure 111/59 03/13/2013 8:06 AM EST Pulse 70 03/13/2013 8:06 AM EST Temperature - - Respiratory Rate - - Oxygen Saturation - - Inhaled Oxygen Concentration - - Weight 73.3 kg (161 lb 9.6 oz) 03/13/2013 8:06 AM EST Height 170.2 cm (5' 7) 03/13/2013 8:06 AM EST Body Mass Index 25.31 03/13/2013 8:06 AM EST documented in this encounter Progress Notes Joanne Mireles APRN - 03/13/2013 8:02 AM EST Nancy Pimentel returned to our office today for post surgical follow-up SURGERY DATE: 01/24/13 OPERATION: Bilateral breast reduction (elizabeth) Complications: none Pain: 2/10 Specific complaints/comments: Nancy is here for follow up from the complaints of swelling, and tenderness on the lateral portion of her left breast. She has noted some improvement since she made the appointment a week ago. She also has a surfacing stitch that is bothersome. She has been massaging her scars and the tender areas on her breast. Physical Examination: Bilateral breast incisions well healed, scars pink and flat. Left breast is slightly larger than the contralateral breast due to residual edema, no signs of hematoma, or seroma. Surfacing suture removed in clinic Impression: Healing well to date from the above noted procedure except for complaints of discomfort,and swelling of the left breast. I advised her that the residual swelling is normal and should continue to resolve with time. She was instructed to follow up for any concerns. Plan: Normal activities with no restrictions Continue scar massages Massage to any firm or painful areas. Follow up: 6 months post op as scheduled or sooner for any concerns IOpal, am acting as scribe for Joanne Mireles. All work documented was performed by Joanne Mireles. ???I performed the above scribed service and agree with the accuracy of the note?? Joanne Mireles APRN documented in this encounter Plan of Treatment Not on filedocumented as of this encounter Visit Diagnoses Diagnosis Other specified aftercare following surg garima - Primary documented in this encounter Care Teams Dry Cleaning Checker Relationship Specialty Start Date End Date Jose Angel Gray DO PCP - General 01/27/[address] [place] [address] documented as of this encounter
--- OUTSIDE RECORDS SUMMARY | 2021-10-23 01:08 | XMS_ITS | Clinical Summary ---
:1965 Author Organization [place] [address] Care Team Providers Name Role Phone IsaacJose Angel Primary Care Provider Allergies Active Allergy Reactions Severity Noted Date Comments Adhesive Tape 01/23/2013 Pt thinks ester r tape is OK Sulfa (Sulfonamide Antibiotics) Medications No known medications Active Problems Problem Noted Date Macromastia 11/15/2012 CIS - Entered not Verified 08/21/2009 CIS - syncope Social History Tobacco Use Types Packs/Day Years Used Date Never Smoker Smokeless Tobacco: Never Used Alcohol Use Standard Drinks/Week Comments Yes 5.8 (1 standard drink = 0.6 oz pure alco hol) Sex Assigned at Date Recorded Not on file Last Filed Vital Signs Vital Sign Reading Time Taken Comments Blood Pressure 111/59 03/13/2013 8:06 AM EST Pulse 70 03/13/2013 8:06 AM EST Temperature 36.6 ??C (97.9 ??F) 01/24/2013 10:27 AM EST Respiratory Rate 16 01/24/2013 11:00 AM EST Oxygen Saturation 92% 01/24/2013 11:00 AM EST Inhaled Oxygen Concentration - - Weight 73.3 kg (161 lb 9.6 oz) 03/13/2013 8:06 AM EST Height 170.2 cm (5' 7) 03/13/2013 8:06 AM EST Body Mass Index 25.31 03/13/2013 8:06 AM EST Plan of Treatment Health Maintenance Due Date Last Done Comments Covid-19 Vaccine (#1) 1970 HIV screen 07/16/1983 Hepatitis C Screening 07/16/1983 Tdap adult 1984 Tetanus vaccine 1984 HPV test 07/16/1995 PAP Smear 07/16/1995 Breast Cancer Share Decision Needed 2005 Colonoscopy 2010 Breast Cancer screening 07/16/2015 Zoster vaccine (1 of 2) 07/16/2015 Advance Directive 2020 Influenza (Flu) vaccine (1 of 1 - Influenza standard 11/05/2021 series) Insurance Payer Benefit Plan / Subscriber ID Effective Dates Phone Addre ss Type Group [employer] [id number] 2017-Basim [phone] [address] [employer] OOS PPO t 3 [facility] [address] [address] (Home) [place], [place] [phone] [id number] (Work) Care Teams Claim Inspector Relationship Specialty Start Date End Date Jose Angel Gray DO PCP - General 01/27/[address] [place], [place] [id number]
[2021-10-23 12:45] LABS: Abs Immature Grans 0.02 10^3/uL (0.0-0.06); Absolute Basophil Count 0.04 10^3/uL (0.0-0.2); Absolute Eosinophil Count 0.11 10^3/uL (0.0-0.7); Absolute Lymphocyte Count 2.04 10^3/uL (1.2-3.4); Absolute Monocyte Count 0.33 10^3/uL (0.1-0.8); Absolute Neutrophil Count 2.17 10^3/uL (1.2-6.7); Basophils % 0.8; Eosinophils % 2.3; HCT 40.9 % (36.0-46.0); HGB 13.2 g/dL (11.2-15.7); Immature Grans % 0.4; Lymphocytes % 43.3; MCH 29.2 pg (27.0-33.0); MCHC 32.3 % (32.0-36.0); MCV 91 fL (80-95); MPV 9.2 fL (8.0-11.0); Neutrophils % 46.2; Platelet Count 327 10^3/uL (130-400); RBC 4.52 10^6/uL (3.93-5.22); RDW 12.3 % (11.7-14.6); RDW-SD 40.8 fL; WBC 4.71 10^3/uL (4.4-10.8)
[2021-10-23 13:05] LABS: ALT 21 U/L (14-59); AST 28 U/L (15-37); Albumin 3.7 g/dL (3.4-5.0); Alkaline Phosphatase 61 U/L (46-116); Anion Gap 6.3 mmol/L (3-11); BUN 9 mg/dL (7-18); Bilirubin, Total 0.3 mg/dL (0.2-1.0); CO2 29.7 mmol/L (21.0-32.0); CREATININE 0.7 mg/dL (0.55-1.02); Calcium 8.7 mg/dL (8.5-10.1); Calculated LDL 127 mg/dL (<100); Chloride 104 mmol/L (98-107); Cholesterol 200 mg/dL (<200); Glucose 103 mg/dL (74-106); HDL Cholesterol 55 mg/dL (40-60); Potassium 4.6 mmol/L (3.5-5.1); Sodium 140 mmol/L (136-145); TSH (W/Ref FT4) 3.07 uIU/mL (0.36-3.74); Total Protein 7.5 g/dL (6.4-8.2); Triglyceride 93 mg/dL (<150)
== END 2021-10-23 01:03 | disposition home or self-care (01) ==
LOC: LOS 01:02
PROVIDERS: PCP Family Medicine; Visit Provider Family Medicine
DX: Z00.00 Encounter for general adult medical examination without abnormal findings (principal); E03.9 Hypothyroidism, unspecified; R53.83 Other fatigue; N95.9 Unspecified menopausal and perimenopausal disorder
CPT/HCPCS: 36415; 80053; 80061; 84443; 85025

== ENCOUNTER → 2021-10-30 00:24 | Outpatient (CLI) | payer BC, SELFPAY ==
--- NOTE | 2021-10-30 08:52 | DI.MAMMO_ITS ---
Exam(s) MAMMO SCREENING EXAM: MAMMO SCREENING CLINICAL HISTORY: screening,z12.39. TECHNIQUE: Bilateral full field digital CC and MLO mammographic images were obtained with 3D tomosyn thesis and utilizing computer aided detection (CAD). COMPARISON: Prior mammograms were reviewed, the most recent being July 2017. FINDINGS: There has been no significant change in the appearance and distribution fibroglandular tissue from . When compared to 2012 there has probably been interval bilateral reduction surgery. There are no CAD designations. There are no new spiculated masses nor malignant appearing microcalcification groups. There is no new significant architectural distortion nor skin thickening-retraction. IMPRESSION: No radiographic evidence of malignancy. BI-RADS Category 2 - Benign Findings Breast Density - Category B - Scattered areas of fibroglandular density Breast density Category C or D implies that the patient has dense breast tissue. Dense breast tissue can make it harder to find cancer on a mammogram. Dense breast tissue is also associated with an incr eased risk of breast cancer. This information about the result of the mammogram report was provided to the patient to raise their awareness. Use this report when you speak with the patient about their risks for breast cancer, which includes their family history. At that time, you may recommend additional screening tests (Ultrasoun d or MRI) as these tests may add significant information. A negative radiographic report should not delay biopsy if a dominant or clinically suspicious mass is present. Up to ten percent of cancers are not identified on mammography. A negative report may reinforce clinical impression. Adenosis and dense breasts may obscure an underlying neoplasm. False positive reports average 6 to 10%. Patient will receive a letter notifying them of these results.
== END ==
PROVIDERS: PCP Family Medicine; Visit Provider Family Medicine
DX: Z12.31 Encounter for screening mammogram for malignant neoplasm of breast (principal)
CPT/HCPCS: 77063; 77067

== ENCOUNTER 2022-08-11 02:50 | Outpatient (CLI) | payer BC, SELFPAY ==
--- NOTE | 2022-08-11 07:45 | DI.MRI_ITS ---
Exam(s) MR LUMBAR SPINE WO EXAM: MR LUMBAR SPINE WO CLINICAL HISTORY: Low back pain radiating into the left leg,radiculitis, m54.16. TECHNIQUE: Multiplanar multisequence MRI of the Lumbar spine was performed. COMPARISON: MR MRI - LUMBAR SPINE WO CONTRAST from 09/05/2017 FINDINGS: Bones: The last intervertebral disc space is designated the L5/S1 level for the numbering purpose of this examination. The vertebral body heights are well maintained. Alignment is satisfactory. There is a hemangioma or fatty rest in the L3 vertebral body. Degenerate plate signal changes are seen at L5-S1. Cord: The conus tip ends at the L1 level. It is of normal size and signal intensity. T12-L1: No disc herniations or bulges are present. No central spinal canal or neural foraminal stenos is. L1-2: There is a small left paracentral disc herniation. No central spinal canal or neural foraminal stenosis. L2-3: No disc herniations or bulges are present. No central spinal canal or neural foraminal stenosis . L3-4: No disc herniations or bulges are present. No central spinal canal or neural foraminal stenosis . L4-5: There are degenerative changes of the facets. No focal disc herniation is seen. No central sp inal canal or neural foraminal stenosis. L5-S1: There is a very small diffuse disc bulge. No central spinal canal or neural foraminal stenosi s. Soft tissues: Incidental note is made of a perineural root sleeve cyst at S2 which is unchanged. The paraspinal soft tissues are unremarkable. IMPRESSION: 1. No evidence of significant spinal stenosis or neuroforaminal narrowing. 2. Small left paracentral disc herniation at L1-L2. Small disc bulge at L5-S1. But these result in no significant central spinal canal or neural foraminal stenosis. DATA REPOSITORY:
== END 2022-08-11 03:10 ==
LOC: DI 02:50
PROVIDERS: PCP Family Medicine; Visit Provider Preventive Medicine Occupational Medicine
DX: M54.16 Radiculopathy, lumbar region (principal)
CPT/HCPCS: 72148

== ENCOUNTER 2022-08-24 13:38 | Outpatient (CLI) | payer BC, SELFPAY ==
[2022-08-24 13:42] VITALS: BP 120/81; PULSE 71; RESP 20; TEMP 36.7; O2SAT 97
--- NOTE | 2022-08-24 14:20 | PDOC.PAIN ---
Date of service: 08/24/22 Time of Service: 14:20 Pain Managment Procedure Note Procedure Note Procedure Note: LUMBAR EPIDURAL STERIOID INJECTION PROCEDURE NOTE Date of Service: August 24, 2022 Patient:Nancy Randle? Provider:?Cristopher Puri DO, MPH Nancy Pimentel has been referred to the [facility] for a lumbar epidural steroid injection. Pre-operative diagnosis: Lumbosacral Radiculopathy Post-operative diagnosis: Same Pre-Procedure Pain: VAS= 7-8/10 Comments: I previously evaluated her in the office. Her symptoms are the same as they were at the time I saw her in the office. Nancy was interviewed and the medical record was reviewed.? There were no medical, pharmacologic, radiographic or other structural contraindications to attempting fluoroscopically guided Lumbar epidural steroid injection.? Risks, potential side effects, indications, and potential benefits of the procedure were reviewed with Nancy.? Questions and concerns were addressed.? After it was clear that Nancy was fully informed about the procedure, the printed consent form was signed by the patient and myself.? Nancy was placed in the prone position on the fluoroscopy table and automated blood pressure cuff and pulse oximeter applied. The skin entry point for entering/approaching the epidural space for the lumbar epidural steroid injection was marked. Following thorough chlorhexadine preparation of the skin and draping and 1% lidocaine infiltration of the skin entry point and subcutaneous tissues, an 18 gauge Touhy needle was placed and advanced under fluoroscopic guidance and with loss of resistance technique into the L5-S1 epidural space. Needle tip placement and depth were aided and confirmed by fluoroscopy. There was no paresthesia or return of blood or CSF through the needle. 1 mls of Omnipaque 240 was injected with clear epidural spread confirmed with fluoroscopy. 80 mg of Depo-Medrol was? injected. This was followed by 1 ml of preservative-free normal saline to flush the steroid out of the needle. There was not any unusual discomfort expressed by Nancy and the needle was removed. (49 mls of Omnipaque was wasted) Nancy's vital signs were stable throughout the procedure and were as recorded in nursing records. Follow up plans and appointments were discussed with Nancy. Post procedure instruction was given as documented in nursing records and having met discharge criteria Nancy was discharged from the [facility]. Post Procedure Pain: VAS= 6/10 COMMENTS: If the patient receives at least 50% improvement in pain and/or function for at least 3 months, this procedure can be repeated. She will get back to her home exercises in 2-3 days. I personally performed this entire procedure. CRISTOPHER PURI DO, MPH ABPMR-subspecialty board certification in Pain Medicine [facility]
--- NOTE | 2022-08-24 14:24 | DI.RAD_ITS ---
Exam(s) XR PAIN CLINIC LUMBAR SP 2V EXAM: XR PAIN CLINIC LUMBAR SP 2V CLINICAL HISTORY: Dx: Lumbar Radiculopathy TECHNIQUE: 2D and realtime digital imaging was performed. CONTRAST MATERIAL: Refer to procedure report. COMPARISON: No exams were available for comparison FINDINGS: Fluoroscopy was provided for Dr. Puri during the performance of a lumbar epidural steroid injection. Please refer to the procedure report for complete details. Ka,r=8.04 mGy IMPRESSION:
[2022-08-24 14:26] VITALS: BP 146/75; PULSE 71; RESP 13; O2SAT 99
[2022-08-24] MEDS: Omnipaque 240 MG/ML 50 ML BTL IJ (14:30)
[2022-08-24] MEDS: methylPREDNISolone ACETATE 80 MG/ML VIAL IJ (14:30)
== END 2022-08-24 13:39 | disposition home or self-care (01) ==
LOC: PC 13:38
PROVIDERS: PCP Family Medicine; Visit Provider Preventive Medicine Occupational Medicine
DX: M54.17 Radiculopathy, lumbosacral region (principal)
CPT/HCPCS: 62323; 72100; J1040; Q9967

== ENCOUNTER 2022-12-24 02:02 | Outpatient (CLI) | payer BC, SELFPAY ==
[2022-12-24 09:43] LABS: Abs Immature Grans 0.02 10^3/uL (0.0-0.06); Absolute Basophil Count 0.05 10^3/uL (0.0-0.2); Absolute Eosinophil Count 0.09 10^3/uL (0.0-0.7); Absolute Lymphocyte Count 2.19 10^3/uL (1.2-3.4); Absolute Monocyte Count 0.43 10^3/uL (0.1-0.8); Absolute Neutrophil Count 2.75 10^3/uL (1.2-6.7); Basophils % 0.9; Eosinophils % 1.6; HCT 41.6 % (36.0-46.0); HGB 13.8 g/dL (11.2-15.7); Immature Grans % 0.4; Lymphocytes % 39.6; MCH 29.4 pg (27.0-33.0); MCHC 33.2 % (32.0-36.0); MCV 89 fL (80-95); MPV 8.7 fL (8.0-11.0); Monocytes % 7.8; Neutrophils % 49.7; Platelet Count 327 10^3/uL (130-400); RDW-SD 38.8 fL; WBC 5.53 10^3/uL (4.4-10.8)
[2022-12-24 10:51] LABS: ALT 22 U/L (14-59); AST 18 U/L (15-37); Alkaline Phosphatase 69 U/L (46-116); Anion Gap 8.5 mmol/L (3-11); BUN 9 mg/dL (7-18); Bilirubin, Total 0.6 mg/dL (0.2-1.0); CO2 28.5 mmol/L (21.0-32.0); CREATININE 0.8 mg/dL (0.55-1.02); Calcium 9.3 mg/dL (8.5-10.1); Chloride 104 mmol/L (98-107); Estimated GFR 85.89 (mL/min/1.73m2); Glucose 93 mg/dL (74-106); Potassium 4.2 mmol/L (3.5-5.1); Sodium 141 mmol/L (136-145); TSH (W/Ref FT4) 1.82 uIU/mL (0.36-3.74); Total Protein 7.9 g/dL (6.4-8.2)
[2022-12-30 02:20] LABS: Cortisol, Saliva <50 ng/dL
== END 2022-12-24 02:03 | disposition home or self-care (01) ==
PROVIDERS: PCP Family Medicine; Visit Provider Family Medicine
DX: R53.83 Other fatigue (principal); E03.9 Hypothyroidism, unspecified
CPT/HCPCS: 36415; 80053; 82530; 84443; 85025

== ENCOUNTER 2022-12-29 07:33 | Outpatient (CLI) | payer BC, SELFPAY ==
--- NOTE | 2022-12-29 06:00 | DI.RAD_ITS ---
Exam(s) XR PAIN CLINIC LUMBAR SP 2V EXAM: XR PAIN CLINIC LUMBAR SP 2V CLINICAL HISTORY: Dx: Lumbar Radiculopathy. TECHNIQUE: Fluoroscopy was provided for the referring physician for guidance with performing pain cl inic injection procedure. COMPARISON: No exams were available for comparison FINDINGS: Please see procedure note for details. Fluoro time: 20.3 seconds RADIATION DOSE DELIVERED: Ka,r=11.79 mGy
--- NOTE | 2022-12-29 08:26 | PDOC.PAIN ---
Date of service: 12/29/22 Time of Service: 08:27 Pain Managment Procedure Note Procedure Note Procedure Note: PROCEDURE NOTE LUMBAR EPIDURAL STEROID INJECTION Date of Service: December 29, 2022 Patient:Nancy Randle? Provider: Cristopher Puri DO, MPH Nancy Pimentel has been referred to the [facility] for a lumbar epidural steroid injection. Pre-operative diagnosis: Lumbosacral Radiculopathy Post-operative diagnosis: Same Pre-Procedure Pain: VAS= 5/10 Comments: She last had this procedure on 08/24/22 with 3+ months of >50% functional improvement and >50% pain improvement for 3+ months. Nancy was interviewed and the medical record was reviewed.? There were no medical, pharmacologic, radiographic or other structural contraindications to attempting fluoroscopically guided Lumbar epidural steroid injection.? Risks, potential side effects, indications, and potential benefits of the procedure were reviewed with Nancy.? Questions and concerns were addressed.? After it was clear that Nancy was fully informed about the procedure, the printed consent form was signed by the patient and myself.? Nancy was placed in the prone position on the fluoroscopy table and automated blood pressure cuff and pulse oximeter applied. The skin entry point for entering/approaching the epidural space for the lumbar epidural steroid injection was marked. Following thorough chlorhexadine preparation of the skin and draping and 1% lidocaine infiltration of the skin entry point and subcutaneous tissues, an 18 gauge Touhy needle was placed and advanced under fluoroscopic guidance and with loss of resistance technique into the L5-S1 epidural space. Needle tip placement and depth were aided and confirmed by fluoroscopy. There was no paresthesia or return of blood or CSF through the needle. 1 mls of Omnipaque 240 was injected with clear epidural spread confirmed with fluoroscopy. 80 mg of Depo-Medrol was? injected. This was followed by 1 ml of preservative-free normal saline to flush the steroid out of the needle. There was no unusual discomfort expressed by Nancy. The needle was withdrawn without difficulty. (49 mls of Omnipaque was wasted) Nancy was observed and was without hemodynamic, neurologic, or allergic reactions.? Fluoroscopic images were digitally archived. Nancy's vital signs were stable throughout the procedure and were as recorded in nursing records. Follow up plans and appointments were discussed with Nancy. Post procedure instruction was given as documented in nursing records and having met discharge criteria Nancy was discharged from the [facility]. COMMENTS: No apparent complications. Post-procedure pain: VAS= 0/10. Nancy to contact [facility] as needed. If at least 50% improvement in pain and/or function for at least 3 months is achieved, this procedure can be repeated. I personally performed this entire procedure. CRISTOPHER PURI DO, MPH ABPMR-subspecialty board certification in Pain Medicine [facility]
[2022-12-29 08:30] VITALS: BP 128/81; PULSE 65; RESP 13; O2SAT 98
[2022-12-29] MEDS: methylPREDNISolone ACETATE 80 MG/ML VIAL IJ (08:40)
[2022-12-29] MEDS: Omnipaque 240 MG/ML 50 ML BTL IJ (08:40)
== END 2022-12-29 07:34 | disposition home or self-care (01) ==
PROVIDERS: PCP Family Medicine; Visit Provider Preventive Medicine Occupational Medicine
DX: M54.17 Radiculopathy, lumbosacral region (principal)
CPT/HCPCS: 00123; 62323; 72100; J1040; Q9967

== ENCOUNTER → 2023-01-28 00:13 | Outpatient (CLI) | payer BC, SELFPAY ==
--- NOTE | 2023-01-28 07:30 | DI.MAMMO_ITS ---
Exam(s) US BREAST RT COMPLETE MAMMO DIAGNOSTIC BI EXAM: MAMMO DIAGNOSTIC BI and U/S breast RT complete CLINICAL HISTORY: follow up of lump right breast,N63.10. TECHNIQUE: Craniocaudal and mediolateral oblique Full Field Digital Mammography views of the bilater al breast with Computer Aided Diagnosis followed by Tomosynthesis and right breast ultrasound. COMPARISON: Comparison is made with prior examinations. FINDINGS: Mammography/Tomosynthesis: Masses/Architectural Distortion: None seen. Microcalcifictions: No suspicious pleomorphic-type are seen. Skin Thickening/Nipple Retraction: None. Complete right breast US: Echotexture: Normal appearance of the glandular tissue. Shadowing: No suspicious foci. Cyst: There are 2 simple cysts seen at the 2 o'clock position of the right breast. The larger measur es 0.3 cm. Solid lesions: None seen. Ductal dilation: None. IMPRESSION: 1. No evidence of malignancy is noted. 2. Unless there is more urgent need, follow-up screening mammography is recommended, as per [employer] guidelines. 3. The findings were discussed with the patient on the date of the examination. BI-RADS Category 2 - Benign Findings Breast Density - Category B - Scattered areas of fibroglandular density Breast density Category C or D implies that the patient has dense breast tissue. Dense breast tissue can make it harder to find cancer on a mammogram. Dense breast tissue is also associated with an incr eased risk of breast cancer. This information about the result of the mammogram report was provided to the patient to raise their awareness. Use this report when you speak with the patient about their risks for breast cancer, which includes their family history. At that time, you may recommend additional screening tests (Ultrasoun d or MRI) as these tests may add significant information. A negative radiographic report should not delay biopsy if a dominant or clinically suspicious mass is present. Up to ten percent of cancers are not identified on mammography. A negative report may reinforce clinical impression. Adenosis and dense breasts may obscure an underlying neoplasm. False positive reports average 6 to 10%. Patient will receive a letter notifying them of these results.
== END ==
PROVIDERS: PCP Family Medicine; Visit Provider Family Medicine
DX: Z12.31 Encounter for screening mammogram for malignant neoplasm of breast; N60.01 Solitary cyst of right breast
CPT/HCPCS: 76642; 77062; 77066; G0279

== ENCOUNTER 2023-02-18 11:13 | Outpatient (REF) | payer BC, SELFPAY ==
--- NOTE | 2023-02-18 10:00 | PAPFT_PTH ---
PATIENT: Nancy Pimentel LOC: [facility] U#:[id number] AGE/SX: 57/F ROOM: RE02/18/[address]: Jennifer Tavares MD : 1965 BED: DIS: 02/18/2023 SPEC #: [id number] RECD: 02/18/23 12:53 STATUS: JENNIFER REEster #: [id number] ARCHIE: 02/18/23 10:[address]: Jennifer Tavares DEPT: [facility] Cytology RECD BY: Argentina Jackson ENTERED: 02/18/23 12:54 SP TYPE: PAPFT CRISTINE DR: Gabriella Bynum Tissues: 1 - CX/ENDOCX FOR PAP SMEARS Procedures: PAP THIN PREP/UVM Screening HPV DNA PROBE Comments: [id number]
== END 2023-02-18 11:14 | disposition home or self-care (01) ==
LOC: LBN 11:13
PROVIDERS: PCP Family Medicine; Visit Provider Obstetrics & Gynecology
DX: Z12.4 Encounter for screening for malignant neoplasm of cervix (principal)
CPT/HCPCS: 88142; 87624

== ENCOUNTER 2023-07-28 08:01 | Outpatient (CLI) | payer BC, SELFPAY ==
[2023-07-28 08:25] VITALS: BP 120/79; PULSE 76; RESP 20; TEMP 36.6; O2SAT 97
--- NOTE | 2023-07-28 08:53 | PDOC.PAIN ---
Date of service: 07/28/23 Time of Service: 08:53 Pain Managment Procedure Note Procedure Note Procedure Note: PROCEDURE NOTE LUMBAR EPIDURAL STEROID INJECTION Date of Service: July 28, 2023 Patient:Nancy Randle? Provider: Cristopher Puri DO, MPH Nancy Pimentel has been referred to the [facility] for a lumbar epidural steroid injection. Pre-operative diagnosis: Lumbosacral Radiculopathy Post-operative diagnosis: Same Pre-Procedure Pain: VAS= 6 /10 Comments: She last had this procedure on 12/29/22 and had about 6 months of >50% pain relief. This pain has returned. Nancy was interviewed and the medical record was reviewed.? There were no medical, pharmacologic, radiographic or other structural contraindications to attempting fluoroscopically guided Lumbar epidural steroid injection.? Risks, potential side effects, indications, and potential benefits of the procedure were reviewed with Nancy.? Questions and concerns were addressed.? After it was clear that Nancy was fully informed about the procedure, the printed consent form was signed by the patient and myself.? Nancy was placed in the prone position on the fluoroscopy table and automated blood pressure cuff and pulse oximeter applied. The skin entry point for entering/approaching the epidural space for the lumbar epidural steroid injection was marked. Following thorough chlorhexadine preparation of the skin and draping and 1% lidocaine infiltration of the skin entry point and subcutaneous tissues, an 18 gauge Touhy needle was placed and advanced under fluoroscopic guidance and with loss of resistance technique into the L5-S1 epidural space. Needle tip placement and depth were aided and confirmed by fluoroscopy. There was no paresthesia or return of blood or CSF through the needle. 1 mls of Omnipaque 240 was injected with clear epidural spread confirmed with fluoroscopy. 80 mg of Depo-Medrol was? injected. This was followed by 1 ml of preservative-free normal saline to flush the steroid out of the needle. There was no unusual discomfort expressed by Nancy. The needle was withdrawn without difficulty. (49 mls of Omnipaque was wasted) Nancy was observed and was without hemodynamic, neurologic, or allergic reactions.? Fluoroscopic images were digitally archived. Nancy's vital signs were stable throughout the procedure and were as recorded in nursing records. Follow up plans and appointments were discussed with Nancy. Post procedure instruction was given as documented in nursing records and having met discharge criteria Nancy was discharged from the [facility]. COMMENTS: No apparent complications. Post-procedure pain: VAS= 0/10. Nancy to contact [facility] as needed. If at least 50% improvement in pain and/or function for at least 3 months is achieved, this procedure can be repeated. I personally performed this entire procedure. CRISTOPHER PURI DO, MPH ABPMR-subspecialty board certification in Pain Medicine [facility]
--- NOTE | 2023-07-28 08:56 | DI.RAD_ITS ---
Exam(s) XR PAIN CLINIC LUMBAR SP 2V EXAM: XR PAIN CLINIC LUMBAR SP 2V CLINICAL HISTORY: DX: Lumbar radiculopathy TECHNIQUE: 2D and realtime digital imaging was performed. Radiologist not present. CONTRAST MATERIAL: None. COMPARISON: No exams were available for comparison FINDINGS: Fluoroscopy was provided for pain management therapy. Please refer to procedure report or details. Radiation Exposure Index: Ka,r=5.98 mGy IMPRESSION: As above. RADIATION DOSE DELIVERED:
[2023-07-28 08:57] VITALS: BP 144/75; PULSE 67; RESP 12; O2SAT 97
[2023-07-28] MEDS: Epidural Tray 1 EACH MC (08:59)
[2023-07-28] MEDS: Omnipaque 240 MG/ML 50 ML BTL IJ (08:59)
[2023-07-28] MEDS: methylPREDNISolone ACETATE 80 MG/ML VIAL IJ (08:59)
== END 2023-07-28 08:02 | disposition home or self-care (01) ==
LOC: PC 08:01
PROVIDERS: PCP Family Medicine; Visit Provider Preventive Medicine Occupational Medicine
DX: M54.17 Radiculopathy, lumbosacral region (principal)
CPT/HCPCS: 62323; 72100; J1010; Q9967

== ENCOUNTER 2024-02-09 11:42 | Outpatient (CLI) | payer BC, SELFPAY ==
[2024-02-09 11:50] VITALS: BP 141/83; PULSE 82; RESP 18; TEMP 36.5; O2SAT 98
[2024-02-09 12:03] VITALS: PULSE 79; RESP 15; O2SAT 98
[2024-02-09 12:04] VITALS: BP 144/87; PULSE 78; PULSE 82; RESP 12; O2SAT 100
[2024-02-09 12:10] VITALS: PULSE 79; RESP 15; O2SAT 98
[2024-02-09 12:14] VITALS: BP 138/87; PULSE 78; PULSE 79; RESP 12; O2SAT 97
--- NOTE | 2024-02-09 12:15 | PDOC.PAIN_ITS ---
Date of service: 02/09/24 Time of Service: 12:15 Pain Managment Procedure Note Procedure Note Procedure Note: PROCEDURE NOTE LUMBAR EPIDURAL STEROID INJECTION Date of Service: February 09, 2024 Patient:Nancy Randle? Provider: Cristopher Puri DO, MPH Nancy Pimentel has been referred to the [facility] for a lumbar epidural steroid injection. Pre-operative diagnosis: Lumbosacral Radiculopathy ICD-10 M54.16 Post-operative diagnosis: Same Pre-Procedure Pain: VAS= 5/10 Comments: She had her last LESI on 07/28/23 and had >5 months of >50% pain relief. Nancy was interviewed and the medical record was reviewed.? There were no medical, pharmacologic, radiographic or other structural contraindications to attempting fluoroscopically guided Lumbar epidural steroid injection.? Risks, potential side effects, indications, and potential benefits of the procedure were reviewed with Nancy.? Questions and concerns were addressed.? After it was clear that Nancy was fully informed about the procedure, the printed consent form was signed by the patient and myself.? Nancy was placed in the prone position on the fluoroscopy table and automated blood pressure cuff and pulse oximeter applied. The skin entry point for entering/approaching the epidural space for the lumbar epidural steroid injection was marked. Following thorough chlorhexadine preparation of the skin and draping and 1% lidocaine infiltration of the skin entry point and subcutaneous tissues, an 18 gauge Touhy needle was placed and advanced under fluoroscopic guidance and with loss of resistance technique into the L5-S1 epidural space. Needle tip placement and depth were aided and confirmed by fluoroscopy. There was no paresthesia or return of blood or CSF through the needle. 1 mls of Omnipaque 240 was injected with clear epidural spread confirmed with fluoroscopy. 80 mg of Depo-Medrol was? injected. This was followed by 1 ml of preservative-free normal saline to flush the steroid out of the needle. There was no unusual discomfort expressed by Nancy. The needle was withdrawn without difficulty. (49 mls of Omnipaque was wasted) Nancy was observed and was witho ut hemodynamic, neurologic, or allergic reactions.? Fluoroscopic images were digitally archived. Nancy's vital signs were stable throughout the procedure and were as recorded in nursing records. Follow up plans and appointments were discussed with Nancy. Post procedure instruction was given as documented in nursing records and having met discharge criteria Nancy was discharged from the [facility]. COMMENTS: No apparent complications. Post-procedure pain: VAS= 0/10. Nancy to contact [facility] as needed. If at least 50% improvement in pain and/or function for at least 3 months is achieved, this procedure can be repeated. I personally performed this entire procedure. CRISTOPHER PURI DO, MPH ABPMR-subspecialty board certification in Pain Medicine [facility]
--- NOTE | 2024-02-09 12:15 | DI.RAD_ITS ---
Exam(s) XR PAIN CLINIC LUMBAR SP 2V EXAM: XR PAIN CLINIC LUMBAR SP 2V CLINICAL HISTORY: DX: Lumbar Radiculopathy TECHNIQUE: 2D and realtime digital imaging was performed. CONTRAST MATERIAL: Refer to procedure report. COMPARISON: No exams were available for comparison FINDINGS: Fluoroscopy was provided for Dr. Puri during the performance of a lumbar epidural steroid injection. Please refer to the procedure report for complete details. Ka,r=10.2 mGy IMPRESSION: RADIATION DOSE DELIVERED: 0.0 0.0 0
[2024-02-09] MEDS: Epidural Tray 1 EACH MC (12:19)
[2024-02-09] MEDS: Omnipaque 240 MG/ML 50 ML BTL IJ (12:19)
[2024-02-09] MEDS: methylPREDNISolone ACETATE 80 MG/ML VIAL IJ (12:19)
== END 2024-02-09 11:43 | disposition home or self-care (01) ==
PROVIDERS: PCP Family Medicine; Visit Provider Preventive Medicine Occupational Medicine
DX: M54.16 Radiculopathy, lumbar region (principal)
CPT/HCPCS: 62323; 72100; J1010; Q9967

== ENCOUNTER 2024-05-10 01:47 | Outpatient (CLI) | payer BC, SELFPAY ==
--- NOTE | 2024-05-10 08:30 | DI.MAMMO_ITS ---
Exam(s) MAMMO SCREENING EXAM: MAMMO SCREENING CLINICAL HISTORY: screening,Z12.39. TECHNIQUE: Bilateral full field digital CC and MLO mammographic images were obtained with 3D tomosyn thesis and utilizing computer aided detection (CAD). COMPARISON: Prior mammograms were reviewed. Prior ultrasound of 01/28/2023 was reviewed. FINDINGS: There has been no significant change in the appearance and distribution of the fibroglandular tissue. There are no CAD designations. No new left breast findings. Anteriorly in the right breast there are small nodular densities again noted which appear unchanged a nd been shown to be microcyst on prior ultrasound examination of January 2023. There is no significant architectural distortion nor skin thickening-retraction. IMPRESSION: Stable benign-appearing findings. No radiographic evidence of malignancy. BI-RADS Category 2 - Benign Findings Breast Density - Category B - Scattered areas of fibroglandular density Breast density Category C or D implies that the patient has dense breast tissue. Dense breast tissue can make it harder to find cancer on a mammogram. Dense breast tissue is also associated with an incr eased risk of breast cancer. This information about the result of the mammogram report was provided to the patient to raise their awareness. Use this report when you speak with the patient about their risks for breast cancer, which includes their family history. At that time, you may recommend additional screening tests (Ultrasoun d or MRI) as these tests may add significant information. A negative radiographic report should not delay biopsy if a dominant or clinically suspicious mass is present. Up to ten percent of cancers are not identified on mammography. A negative report may reinforce clinical impression. Adenosis and dense breasts may obscure an underlying neoplasm. False positive reports average 6 to 10%. Patient will receive a letter notifying them of these results.
== END 2024-05-10 02:07 ==
LOC: DI 01:47
PROVIDERS: PCP Family Medicine; Visit Provider Family Medicine
DX: Z12.31 Encounter for screening mammogram for malignant neoplasm of breast (principal); R92.323 Mammographic fibroglandular density, bilateral breasts; D24.1 Benign neoplasm of right breast
CPT/HCPCS: 77063; 77067

== ENCOUNTER 2024-06-07 03:36 | Outpatient (CLI) | payer BC, SELFPAY ==
[2024-06-07 15:24] LABS: TSH (W/Ref FT4) 3.47 uIU/mL (0.36-3.74)
== END 2024-06-07 03:37 | disposition home or self-care (01) ==
LOC: LBO 03:36
PROVIDERS: PCP Family Medicine; Visit Provider Family Medicine
DX: E03.9 Hypothyroidism, unspecified (principal)
CPT/HCPCS: 36415; 84443

== ENCOUNTER 2024-06-18 09:17 | Outpatient (CLI) | payer BC, SELFPAY ==
[2024-06-18 08:19] LABS: Abs Immature Grans 0.01 10^3/uL (0.0-0.06); Absolute Basophil Count 0.05 10^3/uL (0.0-0.2); Absolute Eosinophil Count 0.15 10^3/uL (0.0-0.7); Absolute Lymphocyte Count 1.85 10^3/uL (1.2-3.4); Absolute Monocyte Count 0.31 10^3/uL (0.1-0.8); Absolute Neutrophil Count 2.28 10^3/uL (1.2-6.7); Basophils % 1.1 %; Eosinophils % 3.2 %; HCT 40.1 % (36.0-46.0); HGB 13.1 g/dL (11.2-15.7); Immature Grans % 0.2 %; Lymphocytes % 39.8 %; MCH 29.8 pg (27.0-33.0); MCHC 32.7 % (32.0-36.0); MCV 91 fL (80-95); MPV 8.7 fL (8.0-11.0); Monocytes % 6.7 %; Platelet Count 273 10^3/uL (130-400); RBC 4.39 10^6/uL (3.93-5.22); RDW 12.2 % (11.7-14.6); WBC 4.65 10^3/uL (4.4-10.8)
[2024-06-18 09:06] LABS: ALT 24 U/L (14-59); AST 19 U/L (15-37); Albumin 3.5 g/dL (3.4-5.0); Alkaline Phosphatase 67 U/L (46-116); Anion Gap 8.1 mmol/L (3-11); BUN 14 mg/dL (7-18); Bilirubin, Total 0.4 mg/dL (0.2-1.0); CO2 28.9 mmol/L (21.0-32.0); CREATININE 0.8 mg/dL (0.55-1.02); Calcium 8.9 mg/dL (8.5-10.1); Chloride 107 mmol/L (98-107); Estimated GFR 85.35 (mL/min/1.73m2); Glucose 119 mg/dL (74-106); Potassium 4.2 mmol/L (3.5-5.1); Sodium 144 mmol/L (136-145); Total Protein 7.2 g/dL (6.4-8.2); Vitamin B12 360 pg/mL (193-986); Vitamin D 25 Total 47 ng/mL (30-100)
== END 2024-06-18 09:18 | disposition home or self-care (01) ==
LOC: LBO 09:18
PROVIDERS: PCP Family Medicine; Visit Provider Family Medicine
DX: R53.83 Other fatigue (principal); Z00.00 Encounter for general adult medical examination without abnormal findings
CPT/HCPCS: 36415; 80053; 82306; 82607; 85025

== ENCOUNTER 2024-07-23 02:43 | Outpatient (CLI) | payer BC, SELFPAY ==
--- NOTE | 2024-07-23 07:45 | DI.MRI_ITS ---
Exam(s) MR UPPER JOINT LT WO EXAM: MR UPPER JOINT LT WO CLINICAL HISTORY: no improvement with PT,LT SHOULDER PAIN, M25.512. TECHNIQUE: Multiplanar multisequence MRI was performed. COMPARISON: None. FINDINGS: BONES: There is no fracture or contusion pattern. JOINTS:The acromioclavicular joint shows mild degenerative changes with some inferior spurring.. The glenohumeral joint is normal. TENDONS: Supraspinatus: Mild thickening and edema anteriorly. Infraspinatus: Unremarkable. Subscapularis: Unremarkable. Teres Minor: Unremarkable. Biceps and Como: Unremarkable. MUSCLES: Unremarkable. GLENOID LABRUM: Unremarkable on this noncontrast examination. SOFT TISSUES: Unremarkable. BURSAE: Subacromial and subdeltoid bursae minimal amount of fluid. IMPRESSION: Supraspinatus tendinosis. Small amount of fluid in subacromial subdeltoid bursa could indicate bursi tis. Mild degenerative changes of the AC joint. DATA REPOSITORY:
== END 2024-07-23 03:03 ==
LOC: DI 02:44
PROVIDERS: PCP Family Medicine; Visit Provider Family Medicine
DX: M25.512 Pain in left shoulder (principal); M75.82 Other shoulder lesions, left shoulder
CPT/HCPCS: 73221

== ENCOUNTER 2024-07-31 10:40 | Outpatient (CLI) | payer BC, SELFPAY ==
--- NOTE | 2024-07-31 08:45 | DI.RAD_ITS ---
Exam(s) XR SHOULDER LT COMPLETE 2+V EXAM: XR SHOULDER LT COMPLETE 2+V CLINICAL HISTORY: LEFT SHOULDER PAIN. TECHNIQUE: 2D digital imaging was performed. COMPARISON: No exams were available for comparison FINDINGS: Two views No evidence of fracture or dislocation or abnormal soft tissue calcifications. Subacromial space nick ears unremarkable. There are no degenerative changes evident in the glenohumeral joint. Some degene rative change evident in the AC joint. Bone density normal. No osseous lesions. IMPRESSION: Unremarkable appearing glenohumeral joint. Some degenerative changes noted in the AC joint. DATA REPOSITORY: RADIATION DOSE DELIVERED:
== END 2024-07-31 10:41 | disposition home or self-care (01) ==
LOC: DIORS 10:40
PROVIDERS: PCP Family Medicine; Visit Provider Student in an Organized Health Care Education/Training Program
DX: M25.512 Pain in left shoulder (principal); S46.012A Strain of muscle(s) and tendon(s) of the rotator cuff of left shoulder, initial encounter
CPT/HCPCS: 73030

== ENCOUNTER 2024-08-30 01:10 | Outpatient (CLI) | payer BC, SELFPAY ==
--- NOTE | 2024-08-30 13:50 | W.NUTRFU ---
Date of service: 08/30/24 Time of Service: 13:00 Nutrition Note NOTE: Nancy referred to today's nutrition appointment for help with weight management. 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 She has struggled with weight control most of her life - has done keto, has used food scales, food journals, macro apps etc... She recently started Zepbound and is on 3rd week at 2.5mg. She sometimes takes nutrition supps: Mag+ at HS, D/K/n-3 combo supplement, probiotic, and is now on month 6 of fiber supplement. She and grow a lot of produce in their garden, raise beef and chickens and get fish sent from her sister in [place] - feels her food is pretty clean and healthy. She also stopped drinking alcohol since last year in hopes this was a big contributing barrier. She has lost ~10lbs since starting medication. Her diet is pretty healthy. From our conversation I would suggest trying to prioritize meeting protein needs (using a good deal of plant sources to up her fiber and protein intake without the fat from meat) . We reviewed some sample menus and she agreed that she probably has too large portions of meat often, as she tries to get protein. Suggested aiming for minimum of 25g fiber. Sent some sample menu and resources to her email as well. Nancy will work to meet ~120g protein per day along with fiber goal while still trying to top off at ~1600 kcals. She has my contact info and a phone call is planned for last week of September to get an update from her and see if any follow up desired/necessary Time Spent in Nutritional Counseling and Treatment: 40 min
== END 2024-08-30 01:11 | disposition home or self-care (01) ==
LOC: DS 01:11
PROVIDERS: PCP Family Medicine; Visit Provider Dietitian, Registered
DX: E66.9 Obesity, unspecified (principal)
CPT/HCPCS: 00123; 97802

== ENCOUNTER 2024-09-25 07:45 | Outpatient (CLI) | payer BC, SELFPAY ==
[2024-09-25 07:57] VITALS: BP 113/77; PULSE 68; RESP 18; TEMP 36.3; O2SAT 99
[2024-09-25 08:17] VITALS: PULSE 66; O2SAT 97
[2024-09-25 08:18] VITALS: BP 142/91; PULSE 65; PULSE 67; RESP 11; O2SAT 98
[2024-09-25 08:20] VITALS: PULSE 65; RESP 12; O2SAT 99
[2024-09-25 08:28] VITALS: BP 147/87; PULSE 66
[2024-09-25] MEDS: Epidural Tray 1 EACH MC (08:33)
[2024-09-25] MEDS: Omnipaque 240 MG/ML 50 ML BTL IJ (08:33)
[2024-09-25] MEDS: methylPREDNISolone ACETATE 80 MG/ML VIAL IJ (08:34)
--- NOTE | 2024-09-25 08:35 | DI.RAD_ITS ---
Exam(s) XR PAIN CLINIC LUMBAR SP 2V EXAM: XR PAIN CLINIC LUMBAR SP 2V CLINICAL HISTORY: Dx: Lumbar Radiculopathy. TECHNIQUE: Fluoroscopy was provided for the referring physician for guidance with performing pain clinic injection procedure. COMPARISON: No exams were available for comparison FINDINGS: Please see procedure note for details. Fluoro time: 18.6 seconds RADIATION DOSE DELIVERED: Ka,r=7.0 mGy
--- NOTE | 2024-09-25 08:36 | PDOC.PAIN_ITS ---
Date of service: 09/25/24 Time of Service: 08:36 Pain Managment Procedure Note Procedure Note Procedure Note: PROCEDURE NOTE LUMBAR EPIDURAL STEROID INJECTION Date of Service: September 25, 2024 Patient:Nancy Randle? Provider: Cristopher Puri DO, MPH Nancy Pimentel has been referred to the [facility] for a lumbar epidural steroid injection. Pre-operative diagnosis: Lumbosacral Radiculopathy ICD-10 M54.16 Post-operative diagnosis: Same Pre-Procedure Pain: VAS= 7 /10 Comments: She last had this procedure on 02/09/24 with >50% pain relief for >5 months. Her symptoms have mostly returned. Pain remains to the left leg. Nancy was interviewed and the medical record was reviewed.? There were no medical, pharmacologic, radiographic or other structural contraindications to attempting fluoroscopically guided Lumbar epidural steroid injection.? Risks, potential side effects, indications, and potential benefits of the procedure were reviewed with Nancy.? Questions and concerns were addressed.? After it was clear that Nancy was fully informed about the procedure, the printed consent form was signed by the patient and myself.? Nancy was placed in the prone position on the fluoroscopy table and automated blood pressure cuff and pulse oximeter applied. The skin entry point for entering/approaching the epidural space for the lumbar epidural steroid injection was marked. Following thorough chlorhexadine preparation of the skin and draping and 1% lidocaine infiltration of the skin entry point and subcutaneous tissues, an 18 gauge Touhy needle was placed and advanced under fluoroscopic guidance and with loss of resistance technique into the L5-S1 epidu ral space. Needle tip placement and depth were aided and confirmed by fluoroscopy. There was no paresthesia or return of blood or CSF through the needle. 1 mls of Omnipaque 240 was injected with clear epidural spread confirmed with fluoroscopy. 80 mg of Depo-Medrol was? injected. This was followed by 1 ml of preservative-free normal saline to flush the steroid out of the needle. There was no unusual discomfort expressed by Nancy. The needle was withdrawn without difficulty. (49 mls of Omnipaque was wasted) Nancy was observed and was without hemodynamic, neurologic, or allergic reactions.? Fluoroscopic images were digitally archived. Nancy's vital signs were stable throughout the procedure and were as recorded in nursing records. Follow up plans and appointments were discussed with Nancy. Post procedure instruction was given as documented in nursing records and having met discharge criteria Nancy was discharged from the [facility]. COMMENTS: No apparent complications. Post-procedure pain: VAS= 0/10. Nancy to contact [facility] as needed. If at least 50% improvement in pain and/or function for at least 3 months is achieved, this procedure can be repeated. I personally performed this entire procedure. CRISTOPHER PURI DO, MPH ABPMR-subspecialty board certification in Pain Medicine [facility] Coding Conscious Sedation used for procedure: No CPT Codes: Inj Spine L/S w/Imaging - [id number] ([id number] ~G) Additional Codes: Date of Service (65622) Date of service: 09/25/24 Diagnoses: Lumbosacral radiculopathy
== END 2024-09-25 07:46 | disposition home or self-care (01) ==
LOC: PC 07:46
PROVIDERS: PCP Family Medicine; Visit Provider Preventive Medicine Occupational Medicine
DX: M54.16 Radiculopathy, lumbar region (principal)
CPT/HCPCS: 62323; 72100; J1010; Q9967